=== PATIENT | female | born 1955 | race Caucasian/White ===

== ENCOUNTER → 2024-05-02 06:22 | Day surgery (SDC) | payer OTHER, SELFPAY | LOC: GI 06:22 | PROVIDERS: ATTENDING PHYSICIAN Surgery | DX: C20 Malignant neoplasm of rectum (principal); K62.5 Hemorrhage of anus and rectum; K64.9 Unspecified hemorrhoids; K56.690 Other partial intestinal obstruction; D49.0 Neoplasm of unspecified behavior of digestive system; Z53.8 Procedure and treatment not carried out for other reasons | CPT/HCPCS: 45380; 88305; 88342 ==

== ENCOUNTER → 2024-05-05 15:04 | Outpatient (REF) | payer OTHER, SELFPAY | LOC: RAD 15:04 | PROVIDERS: ATTENDING PHYSICIAN Surgery; FAMILY PHYSICIAN Nurse Practitioner | DX: K62.89 Other specified diseases of anus and rectum (principal) | CPT/HCPCS: 71260; 74177; Q9967 ==

== ENCOUNTER → 2024-05-18 11:45 | Outpatient (REF) | payer OTHER, SELFPAY | LOC: MRI 3T 11:45 | PROVIDERS: ATTENDING PHYSICIAN Surgery; FAMILY PHYSICIAN Nurse Practitioner | DX: K62.89 Other specified diseases of anus and rectum (principal) | CPT/HCPCS: 72197; A9575 ==

== ENCOUNTER 2024-06-01 06:25 | Day surgery (SDC) | payer OTHER, SELFPAY ==
[2024-06-01] VITALS (9 sets, daily range): BP systolic 97–130; BP diastolic 65–82; BMI 17.6
[2024-06-01] MEDS: TYLENOL 1000 MG PO (09:52)
[2024-06-01] MEDS: CELEBREX 200 MG PO (09:52)
[2024-06-01] MEDS: NORMOSOL-R 1000 IV (09:54)
--- NOTE | 2024-06-01 13:15 | W.IMMPOSTOP ---
Surgical Immed Post Op Note
-
Primary Surgeon: Gregory Spivey MD
Assisting Surgeon: None
Pre-op Diagnosis: Rectal cancer
Post-op Diagnosis: Rectal cancer
Procedure Performed: Mediport insertion
Anesthesia Type: Sedation with local
Specimen / Cultures: None
Estimated Blood Loss: 10 mL
Complications: None
Operative Findings: Per op note
--- NOTE | 2024-06-01 13:17 | OR.RPT ---
Operative Report
Operative Report
DATE OF OPERATION: 06/01/2024
SURGEON: Gregory Spivey MD
PREOPERATIVE DIAGNOSIS: Rectal cancer
POSTOPERATIVE DIAGNOSIS: Rectal cancer
OPERATION: Left subclavian Mediport insertion
ASSISTANTS:
1. None
ANESTHESIA: MAC w/ local
ESTIMATED BLOOD LOSS: 10 mL
FINDINGS:
1. After placement, the tip of port catheter visualized at level of the cavoatrial junction on fluoroscopy
2. Once sutured in position, port tested with Sawant needle and there was good withdrawal of blood and instillation of heparinized saline without resistance
SPECIMENS: None
DRAINS: None
COMPLICATIONS: No immediate complications.
INDICATIONS: The patient is a 69-year-old female with mid rectal cancer. After staging and tumor board discussion, infusional chemotherapy was recommended. Therefore, I recommended port placement. The operation was discussed with the patient in
detail including risks and benefits. Risks discussed included, but are not limited to, bleeding, infection, pneumothorax, post-operative malposition or movement of catheter, DVT/PE, and anesthetic risks. The patient understood and agreed to proceed.
The consent was signed and placed in the chart.
PROCEDURE: Patient was taken to the operating room and placed on the operating table in supine position. Sequential compression devices were placed bilaterally. Sedation was commenced without complication. Bilateral arms were tucked and the head
tilted toward the right. The left neck and chest wall area were prepped and draped in a sterile fashion. A time-out was then performed verifying the correct patient, procedure, operative site, positioning, and special equipment.
The patient was then placed in Trendelenburg position. Local anesthetic consisting of lidocaine 1% with epinephrine was used to numb the skin and soft tissue near the angle of the left clavicle and the planned subcutaneous port pocket. Then using
bony landmarks as a guide, I passed the needle with 10mL syringe under the left collar bone in the direction of the sternal notch while simultaneously aspirating. On the second pass, good venous return was noted indicating that I had accessed the
left subclavian vein. Under fluoroscopic guidance a guidewire was passed through the needle into the patient down to the superior vena cava. This went smoothly.
The needle was removed over the guidewire and a skin opening was enlarged with an 11 blade scalpel. Next, I advanced the dilator and peel-away sheath together over the guidewire into the patient. This went smoothly as well. Next, the guidewire and
inner dilator were removed leaving the outer sheath in place. I advanced the white tubing through the outer sheath into the patient under fluoroscopic guidance to the superior vena cava near the right atrium. Next, the outer sheath was peeled away
while maintaining the white tubing in place.
Using a 15 blade scalpel, I made a 4cm incision over the chest wall near the white tubing exit site. A subcutaneous pocket was created inferiorly to the incision with a combination of Bovie electrocautery and blunt dissection. There was good
hemostasis. The white tubing was connected to the tunneling device and brought through a newly created tunnel to the pocket area, taking care to avoid kinking of the tube. The white tubing was trimmed, connected to the the port reservoir and secured
with the locking mechanism. The port reservoir was accessed with good venous return and flushed with heparinized saline. One last round of fluoroscopy was performed. The tip of the white tubing was at the level of the superior vena cava and there
was no kink in the tubing.
The reservoir was then secured to the chest wall within the pocket with two 3-0 Prolene stitches. The subcutaneous layer was closed with deep dermal interrupted 3-0 Vicryl and the skin was closed with a running subcuticular 4-0 Vicryl. The remaining
local was injected around the subcutaneous pocket, port incision and stab incision. Dermabond was used to dress the port incision and stab incision.
At this point, the procedure was complete. All sponge, needle and instrument counts were correct. The patient tolerated the procedure well and was transferred to the recovery room in stable condition. A portable chest x-ray was ordered in recovery
to confirm port position and rule-out pneumothorax.
DICTATED BY: Gregory Spivey MD
== END 2024-06-01 15:39 | disposition home or self-care (01) ==
LOC: SDS 06:25
PROVIDERS: ATTENDING PHYSICIAN Surgery
DX: C20 Malignant neoplasm of rectum (principal)
CPT/HCPCS: 36561; 71045; C1788

== ENCOUNTER → 2024-09-28 09:24 | Outpatient (REF) | payer MEDICARE, OTHER, SELFPAY | LOC: MRI 3T 09:24 | PROVIDERS: ATTENDING PHYSICIAN Internal Medicine Hematology & Oncology; FAMILY PHYSICIAN Nurse Practitioner | DX: C20 Malignant neoplasm of rectum (principal) | CPT/HCPCS: 72197; A9575 ==

== ENCOUNTER 2024-10-28 09:48 | Inpatient (IN) | payer MEDICARE, OTHER, SELFPAY ==
[2024-10-20 10:20] LABS: Hematocrit 39.7 % (37.0-47.0); Mean Corp Hgb Conc. 32.7 g/dL (33.0-37.0); Mean Corpuscular Hgb 32.1 pg (27.0-31.0); Mean Platelet Volume 9.1 fL (7.4-10.4); Platelet Count 265 10^3/uL (130-400); Red Blood Cell Count 4.05 10^6/uL (4.20-5.40); Red Cell Dist. Width 12.8 % (11.5-14.5); White Blood Cell Count 4.8 10^3/uL (4.8-10.8)
[2024-10-20 10:36] LABS: INR 0.87; PT 12.4 Sec (11.4-14.6)
[2024-10-20 10:37] LABS: APTT 28.9 Sec (23.4-35.0)
[2024-10-20 11:58] LABS: ALT (SGPT) 19 U/L (0-35); AST (SGOT) 31 U/L (14-36); Albumin 4.8 g/dl (3.5-5.0); Alkaline Phosphatase 114 U/L (38-126); Blood Urea Nitrogen 12 mg/dl (7-17); Calcium 9.4 mg/dl (8.4-10.2); Carbon Dioxide 28 mmol/L (22-30); Chloride 102 mmol/L (98-107); Glucose 102 mg/dl (70-99); Potassium 4.3 mmol/L (3.5-5.1); Sodium 140 mmol/L (135-145); Total Bilirubin 0.4 mg/dl (0.2-1.3); Total Protein 7.7 g/dl (6.3-8.2); eGFR > 60.00
[2024-10-20 13:59] VITALS: BMI 20.6
[2024-10-28] VITALS (15 sets, daily range): BP systolic 101–167; BP diastolic 58–96; BMI 20.6
[2024-10-28] MEDS: CELEBREX 200 MG PO (10:52)
[2024-10-28] MEDS: ENTEREG 12 MG PO (10:52)
[2024-10-28] MEDS: TYLENOL 1000 MG PO ×2 (10:52→23:36)
[2024-10-28] MEDS: LYRICA 150 MG PO (10:53)
[2024-10-28] MEDS: NORMOSOL-R/PLASMALYTE-A 1000 IV ×2 (10:54→21:29)
[2024-10-28 12:20] LABS: CEA 6.54 ng/ml
--- NOTE | 2024-10-28 17:46 | W.IMMPOSTOP ---
Surgical Immed Post Op Note
-
Primary Surgeon: Gregory Spivey MD
Assisting Surgeon: LUCIAN Woods, Ward Nma MD
Urologist: N/A
Pre-op Diagnosis: Rectal cancer
Post-op Diagnosis: Rectal cancer
Procedure Performed: Robotic low anterior resection, mesenteric angiography with ICG, flexible sigmoidoscopy, laparoscopic TAP block
Anesthesia Type: General
Specimen / Cultures: Rectosigmoid, donuts
Estimated Blood Loss: 50 mL
Complications: None
Operative Findings: Veress needle entry; 5five 8 mm robotic ports; took down some adhesions from the sigmoid to the left pelvic brim; performed medial lateral dissection of the sigmoid up to the proximal descending colon; initial dissection was
initially superior to the presacral plane, but reentered the correct plane prior to pelvic dissection; ligated the KAT; performed rectal dissection down to about 4 to 5 cm from the anal verge; suspended uterus with 2-0 nylon; performed a flexible
sigmoidoscopy showing no rectal mass but significant stenosis of 1 to 1.5 cm, unable to traverse; stapled with a green load 60 mm robotic stapler x 2; ligated the IMV and placed anvil intracorporeally; performed EEA stapled anastomosis; negative
leak test, intact donuts x 2, anastomosis intact on flex sig; performed laparoscopic tap block with 30 mL of 0.25% Marcaine with epi mixed with 0.3 mg of dexamethasone; injected remaining 30 cc of local around the incisions and closed
Rectal Surgery Post Op Note
Immediate Post Op
Primary Surgeon: Gregory Spivey MD
Assisting Surgeon: LUCIAN Woods, Ward Nam MD
Urologist: N/A
Pre-op Diagnosis: Rectal cancer
Post-op Diagnosis: Rectal cancer
Procedure Performed: Robotic low anterior resection, mesenteric angiography with ICG, flexible sigmoidoscopy, laparoscopic TAP block
Anesthesia Type: General
Specimen / Cultures: Rectosigmoid, donuts
Estimated Blood Loss: 50 mL
Complications: None
Operative Findings: Veress needle entry; 5five 8 mm robotic ports; took down some adhesions from the sigmoid to the left pelvic brim; performed medial lateral dissection of the sigmoid up to the proximal descending colon; initial dissection was
initially superior to the presacral plane, but reentered the correct plane prior to pelvic dissection; ligated the KAT; performed rectal dissection down to about 4 to 5 cm from the anal verge; suspended uterus with 2-0 nylon; performed a flexible
sigmoidoscopy showing no rectal mass but significant stenosis of 1 to 1.5 cm, unable to traverse; stapled with a green load 60 mm robotic stapler x 2; ligated the IMV and placed anvil intracorporeally; performed EEA stapled anastomosis; negative
leak test, intact donuts x 2, anastomosis intact on flex sig; performed laparoscopic tap block with 30 mL of 0.25% Marcaine with epi mixed with 0.3 mg of dexamethasone; injected remaining 30 cc of local around the incisions and closed
Cancer Report
ASA Score: II
Case Status: Elective
Operation: Low anterior resection
Modailty: Robotic
Location of tumor within rectum: Middle
Height of lower edge of tumor from anal verge: 9cm
Mobilization of splenic flexure: No
Level of ligation of inferior mesenteric artery: Inferior mesenteric artery
Level of ligation of inferior mesenteric vein: High
Level of rectal transectiondistal to distal edge of tumor: 3 cm
Type of Reconstruction: Stapled end-end
Anastomotic testing method(s): Rectal air infusion under pelvic fluid
Creation of stoma: No
En bloc resection: No
Metastectomy: No
Completeness of tumor resection: R0
Interoperative Complications: No
Blood transfusion: No
Total Mesorectal Excision photographed: in pathology
Rectal Cancer Synoptic Report
Immediate Post Op
Primary Surgeon:
Assisting Surgeon:
Urologist:
Pre-op Diagnosis:
Post-op Diagnosis:
Procedure Performed:
Anesthesia Type:
Specimen / Cultures:
Estimated Blood Loss:
Complications:
Operative Findings:
Cancer Report
ASA Score: II
Case Status: Elective
Operation: Low anterior resection
Modailty: Robotic
Location of tumor within rectum: Middle
Height of lower edge of tumor from anal verge: 9cm
Mobilization of splenic flexure: No
Level of ligation of inferior mesenteric artery: Inferior mesenteric artery
Level of ligation of inferior mesenteric vein: High
Level of rectal transectiondistal to distal edge of tumor: 3cm
Type of Reconstruction: Stapled end-end
Anastomotic testing method(s): Rectal air infusion under pelvic fluid
Creation of stoma: No
En bloc resection: No
Metastectomy: No
Completeness of tumor resection: R0
Interoperative Complications: No
Blood transfusion: No
Total Mesorectal Excision photographed: in pathology
[2024-10-28] MEDS: ZOFRAN 4 MG IV (19:00)
[2024-10-28] MEDS: TORADOL 15 MG IV ×2 (19:07→23:36)
--- NOTE | 2024-10-28 20:55 | PTCARENOTE ---
Pt arrive to [facility] at 2015 from PACU on a bed. Pt was 5 lap sites and 1 low transverse site. Pt was an accessed Left port and a Castro draining yellow urine. Pt drowsy but easily arousable to verbal. Head to toe complete and admission questions
answered. Bed locked and in lowest position. Pt oriented to call ellison and room. Care ongoing.
[2024-10-29 03:30] VITALS: BP 114/67
[2024-10-29] MEDS: TORADOL 15 MG IV (05:26)
[2024-10-29] MEDS: TYLENOL 1000 MG PO ×4 (05:26→23:03)
[2024-10-29 06:00] VITALS: BMI 20.1
[2024-10-29 06:22] LABS: Blood Urea Nitrogen 22 mg/dl (7-17); Calcium 8.5 mg/dl (8.4-10.2); Carbon Dioxide 24 mmol/L (22-30); Chloride 102 mmol/L (98-107); Estimated Creatinine Clearance 54 ml/min; Glucose 97 mg/dl (70-99); Potassium 4.8 mmol/L (3.5-5.1); Sodium 136 mmol/L (135-145); eGFR > 60.00
[2024-10-29 06:32] LABS: % Basophils 0.1 % (0-2); % Immature Granulocytes 0.3 % (0-0.5); % Lymphocytes 13.6 % (20.5-51.1); % Monocytes 6.4 % (1.7-9.3); % Neutrophils 79.6 % (42.2-75.2); Absolute Lymphocytes 1.3 10^3/uL (1.2-3.4); Absolute Monocytes 0.6 10^3/uL (0.1-0.6); Absolute Neutrophils 7.6 10^3/uL (1.4-6.5); Hematocrit 35.5 % (37.0-47.0); Hemoglobin 11.9 g/dL (12.0-16.0); Mean Corp Hgb Conc. 33.5 g/dL (33.0-37.0); Mean Corpuscular Hgb 32.2 pg (27.0-31.0); Mean Corpuscular Volume 95.9 fL (81.0-99.0); Mean Platelet Volume 9.3 fL (7.4-10.4); Nucleated Red Blood Cells % 0 %; Platelet Count 208 10^3/uL (130-400); White Blood Cell Count 9.5 10^3/uL (4.8-10.8)
[2024-10-29 07:56] VITALS: BP 112/68
[2024-10-29] MEDS: ENTEREG 12 MG PO ×2 (07:58→19:49)
--- NOTE | 2024-10-29 11:37 | PTCARENOTE ---
Addendum entered by Laurie Dumont RN 10/29/24 11:56:
Dr Spivey to bedside. Swelling marked with skin marker. Pressure DSG applied. Ice applied to site. Pt for repeat H+H this afternoon. Care remains ongoing.
Original Note:
Pt with increased pain and swelling to low transverse incision. Area noticeably raised and firm to palpation. Change from this RNs assessment this am. Nola De Santiago [employer] notified. Care remains ongoing.
[2024-10-29 11:40] VITALS: BP 116/69
[2024-10-29] MEDS: TORADOL IV ×2 (11:49→11:56)
--- NOTE | 2024-10-29 13:12 | W.PN.CRS1 ---
Addendum entered and electronically signed by Gregory Spivey MD 10/29/24 23:57:
I saw and examined the patient the morning of 10/29/24.
The B[employer]'s note was reviewed and I agree with the note.
Nurse reported a swelling at the Pfannenstiel incision around noon. I came and evaluated. There appeared to be a hematoma, likely subfascial, around the Pfannenstiel incision. I marked this with a marking pen and placed a pressure dressing.
Repeat CBC was stable at 11.4. I reevaluated the incision at about 4 PM and it was stable in size. Will continue to hold Toradol and Lovenox for today.
Original Note:
Today's Communication / Plan
-
Full liquids
OOB/Ambulate
Assessment/Plan
-
69 yo female with a h/o rectal ca who is POD #1 Robotic low anterior resection, mesenteric angiography with ICG, flexible sigmoidoscopy, laparoscopic TAP block
AFVSS
Labs stable with mild acute anemia present secondary to intraop losses and hemodilution. small hematoma at lower incision site
+Flatus but no BM as of yet, tolerating CLD
--Advance to FLD
--Analgesics/Antiemetics
--Stop IVF
--Voiding trial in AM
--Labs in AM
--SCDs and Lovenox for VTE ppx
Subjective Data
Procedure
10/28/24 Robotic low anterior resection, mesenteric angiography with ICG, flexible sigmoidoscopy, laparoscopic TAP block
Subjective Data
Date of Service: October 29, 2024
Patient seen and examined at bedside with Dr. Spivey. Some bulging at lower abdominal incision. Denies n/v. Passing flatus.
Objective Data
-
Vital Signs
Temp Pulse Resp BP Pulse Ox
98.0 F 84 18 116/69 91
10/29/24 11:40 10/29/24 11:40 10/29/24 11:40 10/29/24 11:40 10/29/24 11:40
Intake & Output
10/28/24 10/29/24 10/30/24
06:59 06:59 06:59
Intake Total 200 / 200
Output Total 550 / 550
Balance -350 / -350
Intake:
IV fluids (Total) 200 / 200
Normosol 200 / 200
Output:
Urine, Castro 550 / 550
Lab Results
10/29/24 05:03
Physical Exam
-
General: No Acute Distress
Abdomen: Soft, Non Distended and Tender (minimal to incisions)
Skin: Warm and Dry
Wound: Other (edema to lower incision: likely hematoma (marked))
Incision: Clear, Dry, Intact
[2024-10-29 13:29] LABS: Hematocrit 33.6 % (37.0-47.0); Hemoglobin 11.4 g/dL (12.0-16.0)
[2024-10-29 16:17] VITALS: BP 120/72
[2024-10-29 19:15] VITALS: BP 129/82
[2024-10-29 23:00] VITALS: BP 137/82
[2024-10-30 03:00] VITALS: BP 154/94
[2024-10-30 05:11] LABS: Hematocrit 39.4 % (37.0-47.0); Hemoglobin 12.9 g/dL (12.0-16.0); Mean Corp Hgb Conc. 32.7 g/dL (33.0-37.0); Mean Corpuscular Hgb 32.3 pg (27.0-31.0); Mean Corpuscular Volume 98.7 fL (81.0-99.0); Mean Platelet Volume 8.9 fL (7.4-10.4); Platelet Count 242 10^3/uL (130-400); Red Blood Cell Count 3.99 10^6/uL (4.20-5.40); Red Cell Dist. Width 12.1 % (11.5-14.5); White Blood Cell Count 10.2 10^3/uL (4.8-10.8)
[2024-10-30 05:34] LABS: Blood Urea Nitrogen 23 mg/dl (7-17); Carbon Dioxide 27 mmol/L (22-30); Chloride 101 mmol/L (98-107); Estimated Creatinine Clearance 61 ml/min; Glucose 102 mg/dl (70-99); Potassium 4.4 mmol/L (3.5-5.1); Sodium 135 mmol/L (135-145); eGFR > 60.00
[2024-10-30] MEDS: TYLENOL 1000 MG PO ×2 (05:58→12:26)
[2024-10-30 06:00] VITALS: BMI 19.1
[2024-10-30] MEDS: ENTEREG 12 MG PO (07:53)
[2024-10-30 07:59] VITALS: BP 120/78
--- NOTE | 2024-10-30 11:04 | W.PN.CRS1 ---
Today's Communication / Plan
-
Advance diet
Dispo planning
Assessment/Plan
-
69 yo female with a h/o rectal ca who is POD #2 Robotic low anterior resection, mesenteric angiography with ICG, flexible sigmoidoscopy, laparoscopic TAP block
AFVSS
Some mild tachycardia with activity, but rates slows with rest; expected
Labs stable with mild acute anemia present secondary to intraop losses and hemodilution, stable from previous. small stable hematoma at lower incision site
Passing flatus/stools
--Advance to regular diet
--Analgesics/Antiemetics
--OOB/Ambulate
--SCDs for VTE ppx
Tentative d/c later today if tolerating diet
Subjective Data
Procedure
10/28/24 Robotic low anterior resection, mesenteric angiography with ICG, flexible sigmoidoscopy, laparoscopic TAP block
Subjective Data
Date of Service: October 30, 2024
Patient seen and examined at bedside. Pain improved from yesterday. OOB to bathroom and has passed several BM's and flatus. Some tarry color to stool but no clots/BRB. No n/v. Tolerating fulls. Voiding well.
Objective Data
-
Vital Signs
Temp Pulse Resp BP Pulse Ox
97.7 F 92 20 120/78 95
10/30/24 07:59 10/30/24 07:59 10/30/24 07:59 10/30/24 07:59 10/30/24 07:59
Intake & Output
10/29/24 10/30/24 10/31/24
06:59 06:59 06:59
Intake Total 200 / 200 1280 / 1280
Output Total 550 / 550 1350 / 1350
Balance -350 / -350 -70 / -70
Intake:
Oral fluids 880 / 880
IV fluids (Total) 200 / 200 400 / 400
Normosol 200 / 200
Output:
Urine, Castro 550 / 550 1250 / 1250
Urine, Voided 100 / 100
Lab Results
10/30/24 04:27
10/30/24 04:27
Physical Exam
-
General: No Acute Distress
Abdomen: Soft, Non Distended and Tender (minimal to incisions)
Skin: Warm and Dry
Wound: Other (edema to lower incision: likely hematoma (decreased in size from prior markings))
Incision: Clear, Dry, Intact
[2024-10-30 11:27] VITALS: BP 146/84
--- NOTE | 2024-10-30 11:58 | CM ---
CM met with pt bedside
Pt resides with her spouse in a 3SH, 4STE
Full flight to 2nd floor bed/bath
Pt is independent with her ADLs- denies use of DMEs
Denies financial insecurities
Rx coverage through [employer]
PCP- Nicolette Sharp
Rx- Juan
Anticipate dc today pending toleration of diet
No dc needs noted
IMM verbally reviewed- copy provided
Discharge Disposition - home, no needs- spouse transport
[2024-10-30 15:30] VITALS: BP 134/90
--- NOTE | 2024-10-30 17:05 | W.DCSUMMARY ---
Discharge Summary
Discharge Data
Date of Admission: 10/28/24
Date of Discharge: 10/30/24
-
Pending Results: No
Hospital Course
Ms Petit is a 69 yo female with a h/o rectal ca who presented for operative management with robotic low anterior resection, mesenteric angiography with ICG, flexible sigmoidoscopy, laparoscopic TAP block preformed. She tolerated the procedure
well. She developed a small hematoma to the lower abdominal incision which was decreased in size prior to discharge. Hemoglobin was stable prior to discharge as well. Diet was able to be advanced and well tolerated with passage of flatus and stools.
She worked with physical therapy and was cleared to return to home. She was discharged to home with outpatient follow up planned once pain was controlled and she was tolerating a regular diet.
Discharge Plan
-
Patient Disposition: Home (Routine Discharge)
Discharge Diagnosis/Procedures: Robotic low anterior resection
Condition: Good
Diet: As tolerated and Regular
Additional Diets: Eat small meals as tolerated
Activity: No strenuous activity
Additional Activity: Do not lift over 10lbs (gallon of milk)
Driving Restrictions: Wait until off narcotics/comfortable twisting
Bathing Restrictions: OK to Shower
Wound Care: Allow the glue to fall off your incisions over the next 2-3 weeks. Avoid scrubbing or picking off.
You will notice bruising to your lower abdominal incision, apply ice as needed for swelling or discomfort.
Activity Restrictions/Additional Instructions:
Call your surgeon if you have nausea with vomiting, worsening pain or a fever >100.5
Referrals:
Nicolette Sharp CRNP [Family Provider] -
Gregory Spivey MD [Active] - in two to three weeks
Prescriptions:
New
acetaminophen [acetaminophen] 325 mg tablet
650 mg PO Q4HPRN PRN (Reason: mild pain) Qty: 1 0RF
ibuprofen 200 mg tablet
400 - 600 mg PO Q6HPRN PRN (Reason: moderate pain) Qty: 1 0RF
oxycodone 5 mg tablet
5 mg PO Q4HPRN PRN (Reason: breakthrough/severe pain) Qty: 10 0RF
Continued
cholecalciferol (vitamin D3) [Vitamin D3] 25 mcg (1,000 unit) Tablet,Chewable
25 mcg PO DAILY
Discontinued
metronidazole [Flagyl] 500 mg Tablet
500 mg PO PRE OP
Patient Comments:
Patient took at 14:00. 15:00 and 22:00.
neomycin 500 mg Tablet
500 mg PO PRE OP
Patient Comments:
Patient took at 14:00, 15:00 and 22:00.
Sutab 1.479-0.188- 0.225 gram Tablet
0 tab PO PRE OP
Discharge Orders:
Discharge Patient (As Directed); Ordered 10/30/24
Ordered By: Carmelita De Santiago
Discharge Date and Time
Discharge Date/Time: 10/30/24 17:25
Print Language: VINCENTIAN
== END 2024-10-30 17:25 | disposition home or self-care (01) | DRG 331 ==
LOC: 2 SOUTH 09:48
PROVIDERS: Registered Nurse; ADMITTING PHYSICIAN Surgery; FAMILY PHYSICIAN Nurse Practitioner
PROC: 0DJD8ZZ Inspection of Lower Intestinal Tract, Via Natural or Artificial Opening Endoscopic (ICD-10-PCS; 2024-10-28)
PROC: 0DBV0ZZ Excision of Mesentery, Open Approach (ICD-10-PCS; 2024-10-28)
PROC: 0DBN0ZZ Excision of Sigmoid Colon, Open Approach (ICD-10-PCS; 2024-10-28)
DX: C20 Malignant neoplasm of rectum (principal)
CPT/HCPCS: 88304; 88309; 36415; 71046; 80048; 80053; 82378; 83735; 85014; 85018; 85025; 85027; 85610; 85730; 86850; 86900; 86901; 88342; 93005; 97161

== ENCOUNTER 2024-11-04 17:01 | Inpatient (IN) | payer MEDICARE, OTHER, SELFPAY ==
[2024-11-04] VITALS (40 sets, daily range): BP systolic 85–130; BP diastolic 52–87; BMI 18.5
--- NOTE | 2024-11-04 13:09 | EDRN ---
EMS IV fluids restarted at this time. IV VAT RN paged to access L ACW port at this.
[2024-11-04] MEDS: NSS 500 IV (13:10)
--- NOTE | 2024-11-04 13:28 | EDRN ---
BP up to 109 systollically w/ IVF infusing at this time.
[2024-11-04 13:41] LABS: ALT (SGPT) 16 U/L (0-35); AST (SGOT) 23 U/L (14-36); Albumin 3.1 g/dl (3.5-5.0); Alkaline Phosphatase 58 U/L (38-126); Blood Urea Nitrogen 43 mg/dl (7-17); Calcium 8.2 mg/dl (8.4-10.2); Carbon Dioxide 22 mmol/L (22-30); Chloride 102 mmol/L (98-107); Estimated Creatinine Clearance 55 ml/min; Glucose 156 mg/dl (70-99); Sodium 134 mmol/L (135-145); Total Bilirubin < 0.1 mg/dl (0.2-1.3); Total Protein 5.2 g/dl (6.3-8.2); eGFR > 60.00
--- NOTE | 2024-11-04 13:45 | EDRN ---
POX was 85% w/ good pleth at this time so pt was placed on oxygen via NC at 2lpm.
[2024-11-04 13:48] LABS: Troponin I < 0.012 ng/ml
[2024-11-04 13:55] LABS: % Basophils 0.1 % (0-2); % Eosinophils 0.3 % (0-6); % Immature Granulocytes 1.5 % (0-0.5); % Lymphocytes 19.4 % (20.5-51.1); % Monocytes 6.7 % (1.7-9.3); % Neutrophils 72.1 % (42.2-75.2); Absolute Eosinophils 0.1 10^3/uL (0-0.7); Absolute Immature Granulocytes 0.2 10^3/uL (0-0.05); Absolute Lymphocytes 2.9 10^3/uL (1.2-3.4); Absolute Neutrophils 10.9 10^3/uL (1.4-6.5); Hematocrit 12.3 % (37.0-47.0); Hemoglobin 4.1 g/dL (12.0-16.0); Mean Corp Hgb Conc. 34.1 g/dL (33.0-37.0); Mean Corpuscular Hgb 34.1 pg (27.0-31.0); Mean Platelet Volume 9.1 fL (7.4-10.4); Nucleated Red Blood Cells % 0 %; Platelet Count 321 10^3/uL (130-400); Red Blood Cell Count 1.23 10^6/uL (4.20-5.40); Red Cell Dist. Width 13.5 % (11.5-14.5); White Blood Cell Count 15.2 10^3/uL (4.8-10.8)
[2024-11-04] MEDS: NSS 1000 IV (13:58)
[2024-11-04 14:25] LABS: COVID-19 Antigen Negative (Negative)
--- NOTE | 2024-11-04 15:00 | CON.CRS ---
Consultation
-
Date/Time Consultation Requested: 11/04/2024, 15:00
Date/Time Consultation Performed: 11/04/2024, 15:30
Requesting Provider: Cassie Anne DO
Performing Provider: Homar Angel MD
Reason for Consultation: dizziness
Medical History
-
Chief Complaint: dizziness
History of Present Illness:
69-year-old female, status post 1 week from a robotic low anterior resection due to rectal cancer by Dr. Gregory Spivey, presents to the ER due to dizziness. She had called our service last night complaining of dizziness every time she would walk to
her bathroom. She spoke to Dr. Nam who advised her to go to the ER. Dr. Nam called her this morning after realizing she was not in the ER and the patient stated she was feeling a bit better today. She was then called again today by me around
11 AM and the patient stated she had 3 dizzy episodes and had fallen each time. She is now unable to get out of the bed. I advised her to go to the ER and then she agreed. Her main complaint is dizziness every time she moves. She denies
abdominal pain or bleeding. She did admit to a black stool that was yesterday afternoon but has not had a bowel movement since. She denies nausea or vomiting. She did not take her temperature at home but did admit to chills whenever she would get
out of bed. In the ER her hemoglobin is 4.1. Her white count is 15.2. She was hypotensive 80s over 60s but now is 100s over 70s. Her heart rate has ranged from 90-107. She has just undergone a CT of the head, abdomen, and pelvis. Results are
still pending but it appears that there is a hematoma in the anterior pelvic wall superficial to the rectus abdominis muscle measuring 6.8 cm. As I am examining her in the room, the patient had a bowel movement. She states she was nauseous prior to
the BM but not since having one. In her underwear is a large clotty bloody dark stool.
Past Medical History
Past Medical History: Cancer (Rectal) and Other (Hyperlipidemia, osteoarthritis, history of tobacco use, vitamin D deficiency)
Past Surgical History: Other (Status post low anterior resection by Dr. Gregory Spivey on 10/28/2024)
Social History
Tobacco: Smoker
Family History
Family History: Reviewed & Not Pertinent
Allergies / Home Medications
Allergy/AdvReac Type Severity Reaction Status Date / Time
No Known Allergies Allergy Verified 11/04/24 12:48
�Medication �Instructions �Recorded �Confirmed �Type
cholecalciferol (vitamin D3) 25 25 mcg PO DAILY 05/31/24 11/04/24 History
mcg (1,000 unit) chewable tablet
(Vitamin D3)
acetaminophen 325 mg tablet 650 mg (2 x 325 mg) PO Q4HPRN PRN 10/30/24 11/04/24 Rx
mild pain #1 tab
oxycodone 5 mg tablet 5 mg PO Q4HPRN PRN 10/30/24 11/04/24 Rx
breakthrough/severe pain #10 tabs
Review of Systems
-
History Source: Patient
All other systems: Negative unless noted
Constitutional: Chills and Other (Dizziness)
Abdomen/GI: Black Stools
A 10 point review of systems was completed, and was negative except as per HPI.
Physical Exam
Vital Signs
Temp 97.4 F 11/04/24 12:49
Pulse 93 11/04/24 14:00
Resp Rate 19 11/04/24 14:00
Blood pressure 109/72 11/04/24 14:00
SaO2 100 11/04/24 14:00
11/03/24 11/04/24 11/05/24
06:59 06:59 06:59
Actual Weight 57.9 kg
Body Mass Index (BMI) 20.0
Lab Results / Allergies
11/04/24 13:04
11/04/24 13:04
WBC 15.2 10^3/uL (4.8-10.8) H 11/04/24 13:04
Hgb 4.1 g/dL (12.0-16.0) L* D 11/04/24 13:04
Hct 12.3 % (37.0-47.0) L* 11/04/24 13:04
Plt Count 321 10^3/uL (130-400) D 11/04/24 13:04
Abs Immat Gran (auto) 0.2 10^3/uL (0-0.05) H 11/04/24 13:04
Neutrophils % 72.1 % (42.2-75.2) 11/04/24 13:04
Allergy/AdvReac Type Severity Reaction Status Date / Time
No Known Allergies Allergy Verified 11/04/24 12:48
Physical Exam
General: Well Developed, Well Nourished and No Apparent Distress
GI: Soft, Non Tender, Non Distended and Other (Crepitus noted on exam (mild), lower pfannestial incision with hematoma noted underneath, some mild bruising, no obvious signs of infection)
Skin: Warm and Dry
Neuro: AO x 3
Psych: Calm
Data Reviewed
-
CT Scan: Image Personally Visualized and interpreted, Discussed with Physician and Discussed with Patient
Labs: Labs Reviewed by me, Discussed with Physician and Discussed with Patient
Old Records: Reviewed
Assessment / Plan
-
Assessment: 69-year-old female status post 1 week from a low anterior resection due to rectal cancer, presents from home due to dizziness found to have a hemoglobin of 4.1 and superficial hematoma on CT measuring 6.8 cm
Plan:
-Stat transfusion, frequent H&H's
-Remain NPO
-Await CT reads (prelim shows hematoma under incision)
-Further plans to follow, will discuss with Dr. Nam/Dr. Angel
--- NOTE | 2024-11-04 15:07 | EDRN ---
Sent slip for unit #1 of ready pRBCs at this time.
--- NOTE | 2024-11-04 15:23 | ED.GENMED ---
History of Present Illness
General
Chief Complaint: Weakness
Time Seen by Provider: 11/04/24 13:24
History of Present Illness
History of Present Illness:
69-year-old female with history of rectal CA status post robotic low anterior resection with recent admission from 10/28 to 10/30 presenting to the emergency department for generalized weakness. Patient denies any issues with the surgery, however
in the past few days has become increasingly weak and per pale. Patient denies any history of anemia or any history of transfusion. After surgery, patient did develop a small hematoma which was being monitored, without concern for bleeding
at that time. Today, patient could not ambulate, was crawling down the stairs and did fall, struck her head, did consciousness. Denies blood in her stool. Denies any abdominal pain. Denies chest pain or difficulty breathing. Denies fever.
Past History
Past History
ED Past Medical History: None
Social History
Tobacco: Smoker
Employment: Employed
Phy Exam
Physical Exam
Physical Exam:
General: Pale, dry mucous membranes
HEENT: protecting airway
Head: Small abrasion to nasal bridge. No septal hematoma
Neck: appears supple
CV: Normal heart rate, regular rhythm
Resp: No accessory muscle use, no increased work of breathing, lungs clear to auscultation bilaterally
Abd: No distention, however diffuse palpation of crepitus to the abdomen. There is evidence of previous demarcated hematoma to the lower abdomen, soft on palpation. No erythema or warmth to the region.
Extremities: No deformities, no swelling, no erythema, pulses and sensation intact
Neuro: alert, no focal neurologic deficit
: deferred
Rectal: deferred
Psych: Normal affect
Skin: Intact
Course
Orders/Labs/Results
Orders:
Orders
11/04/24 12:47
Electrocardiogram (*1) Urgent
Reason for Study: Chest Pain
Cardiac Monitoring- Treatment ONCE
EKG- Treatment ONCE
11/04/24 13:04
Type And Crossmatch [Type+Screen] Urgent
Complete Blood Count/With Diff Urgent
Comprehensive Metabolic Panel Urgent
Troponin I Urgent
11/04/24 13:40
0.9% Sodium Chloride 1000 ml [Nss] 1,000 ml IV BOLUS
11/04/24 13:41
CT Head W/o Iv Contrast Urgent
Comment:
Reason For Exam: fall, contusion to forehead
11/04/24 13:53
COVID-19 Antigen Urgent
Source: Nasal Swab
Influenza A+B Rapid Molecular Urgent
ACE Source: Nasal Swab
Specimen Description:
11/04/24 13:58
0.9% Sodium Chloride 500 ml [Nss] 500 ml IV BOLUS
11/04/24 14:21
CT Abd/pelvis W Iv Cont Urgent
Comment:
Reason For Exam: anemia after surg. Rectal contrast please
11/04/24 14:39
* Blood Bank Products Urgent
Blood Bank Products: *Packed RBC Leuko(PRBC's)
Quantity: 2
Transfuse Today: Yes
Reason: Bleeding
11/04/24 15:39
Pantoprazole 80 mg/ 100 mL 8 mg/hr NOW X 1 BAG Pantoprazole 80 mg/100 ml Nss [Protonix] 80 mg in 100 ml IV NOW
Abnormal Lab Results
11/04/24
13:04
WBC 15.2 H 10^3/uL
(4.8-10.8)
RBC 1.23 L 10^6/uL
(4.20-5.40)
Hgb 4.1 L* D g/dL
(12.0-16.0)
Hct 12.3 L* %
(37.0-47.0)
MCV 100.0 H fL
(81.0-99.0)
MCH 34.1 H pg
(27.0-31.0)
Abs Immat Gran (auto) 0.2 H 10^3/uL
(0-0.05)
Absolute Neuts (auto) 10.9 H 10^3/uL
(1.4-6.5)
Absolute Monos (auto) 1.0 H 10^3/uL
(0.1-0.6)
Immature Gran % 1.5 H %
(0-0.5)
Lymphocytes % 19.4 L %
(20.5-51.1)
Sodium 134 L mmol/L
(135-145)
BUN 43 H mg/dl
(7-17)
Glucose 156 H mg/dl
(70-99)
Calcium 8.2 L mg/dl
(8.4-10.2)
Total Bilirubin < 0.1 L mg/dl
(0.2-1.3)
Total Protein 5.2 L g/dl
(6.3-8.2)
Albumin 3.1 L g/dl
(3.5-5.0)
Crossmatch IS Only See Detail
11/04/24 13:04
11/04/24 13:04
Vital Signs
Initial and Last Documented VS:
Initial Vital Signs
Temp Pulse Resp BP Pulse Ox
97.4 F 107 20 121/75 98
11/04/24 12:49 11/04/24 12:49 11/04/24 12:49 11/04/24 12:49 11/04/24 12:49
Last Documented Vital Signs
Temp Pulse Resp BP Pulse Ox
98.2 F 93 18 101/61 100
11/04/24 15:20 11/04/24 15:20 11/04/24 15:20 11/04/24 15:20 11/04/24 15:20
MDM/Problems Addressed
MDM/Problems Addressed:
69-year-old female with history of rectal cancer status post robotic low anterior resection 10/28 presenting for generalized weakness. Vital signs on arrival significant for hypotension.
On arrival, patient appears very pale and dry with dry mucous membranes. Concern for acute dehydration and possible anemia. Abdomen however is soft without tenderness. However does have a feeling of crepitus diffusely concerning for gas. Plan
for volume resuscitation with IV fluids. Plan for laboratory analysis including CBC, type and screen. Will discuss with colorectal. Patient also has a small abrasion to her nose. Will obtain CT brain, did strike her head prior to arrival. No
midline cervical neck tenderness.
14:10 -hemoglobin is 4.2, significant decrease from prior hemoglobin. Patient consented, will transfuse 2 units. In discussion with colorectal, recommending CT with IV and rectal contrast. Will obtain.
15:20 - CT shows subcutaneous hematoma in the anterior pelvic wall measuring 6.8 x 2.4 x 3.5 cm. Intact rectal anastomosis. Colorectal aware.
15:40 -in further discussion with patient, does note melena for the past few days. Colorectal reporting low utility in CT angio at this time given that she received rectal contrast. Advising transfusion and resuscitation with following of
hemoglobin, as well as GI consultation. Will start on Protonix.
*Critical Care Note
Total Time (30-74mins, 75-104mins- exclusive of procedures): 65
comment:
The high probability of a clinically significant, sudden or life threatening deterioration of the hemodynamic system(s) required my full and direct attention, intervention and personal management. The aggregate critical care time was 65 minutes.
This time is in addition to time spent performing reported procedures but includes the following:
[x] Data Review and interpretation
[x] Patient assessment and monitoring of vital signs
[x] Documentation
[x] Medication orders and management
ED Attending Note
-
Portions of this chart may have been created with voice recognition software.� Occasional wrong word or��sound alike� substitutions may have occurred due to the inherent limitations of voice recognition software.
Discharge Plan
Departure
Prescriptions:
No Action
cholecalciferol (vitamin D3) [Vitamin D3] 25 mcg (1,000 unit) Tablet,Chewable
25 mcg PO DAILY
acetaminophen [acetaminophen] 325 mg tablet
650 mg PO Q4HPRN PRN (Reason: mild pain) Qty: 1 0RF
oxycodone 5 mg tablet
5 mg PO Q4HPRN PRN (Reason: breakthrough/severe pain) Qty: 10 0RF
Referrals:
Nicolette Sharp CRNP [Family Provider] -
Interventions
Interventions:
*Risk Screen - Suicide Last Done: 11/04/24 12:49
*General Assessment Last Done: 11/04/24 12:49
*Neglect/Abuse Screening Last Done: 11/04/24 12:49
ED- Fall Risk Assessment Last Done: 11/04/24 13:02
*ED COVID-19 Vaccine History Last Done: 11/04/24 13:01
ED- Cardiac Assessment Last Done: 11/04/24 13:12
ED- Neurological Assessment Last Done: 11/04/24 13:12
ED- Pulmonary Assessment Last Done: 11/04/24 13:12
Discharge Date and Time
Print Language: AMHARIC
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
--- NOTE | 2024-11-04 16:06 | EDRN ---
Dr. Canela in room w/ pt at this time.
[2024-11-04] MEDS: PROTONIX IV 40 MG IV (16:07)
[2024-11-04] MEDS: PROTONIX 100 IV (16:08)
--- NOTE | 2024-11-04 16:34 | CON.INTV ---
Consultation
Consultation Request
Date/Time Consultation Requested: 11/04/2024
Date/Time Consultation Performed: 11/04/2024
Requesting Provider: Dr. Jorge Canela
Performing Provider: Dr. Saxena/Dr. Bocanegra
Medical History
-
Chief Complaint: dizziness
History of Present Illness:
69yo F with PMH of rectal cancer s/p resection 10/28/24 who presented to ED from home on 11/04 for dizziness. For her rectal cancer, she underwent chemotherapy from May-August, then had recent robotic low anterior resection with Dr. Spivey; she was
discharged from hospital 10/30, at which time her hgb was 12.9. Since her surgery, she reports black diarrhea. At home she initially felt well and had no difficulties ambulating. However over the past 1-2 days, she started feeling 'bad.' She reports
dizziness, fatigue, nausea, vomiting, difficulty ambulating, and multiple falls that included injury to bridge of nose. In the ED, she was tachycardic to 107 with BPs 80s-120s/60s-70s, RR 20, SpO2 90% on room air, T 97.4. Her hgb was 4.1 and
transfusion was started. Abdomen/pelvic CT showed subcutaneous hematoma in anterior pelvic wall 6.8x2.4x3.5cm. Head CT was negative for acute ICH.
Patient seen and examined in ED. HR 87, BP 116/70, RR 17, SpO2 100% on room air. Blood transfusion and protonix gtt running. Continues to have nausea and dizziness, though slightly improved. Last tolerated regular diet yesterday; today had fluids
and cream of wheat but vomited multiple times since. She denies abdominal pain, but reports burning sensation on RLQ. She denies chest pain/pressure, shortness of breath.
Past Medical History
Past Medical History: Cancer (rectal cancer) and Other (OA, hyperlipidemia)
Past Surgical History: Bowel Resection (robotic low anterior resection 10/28/24)
Social History
Tobacco: Former Smoker (quit May 2024; smoked ~8 cig/day prior to quitting)
Alcohol: Occasional (rare, none in past year)
Drug: None
Personal:
Living: With Family
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
Allergies / Home Medications
Allergies
Allergy/AdvReac Type Severity Reaction Status Date / Time
No Known Allergies Allergy Verified 11/04/24 12:48
Home Medications
�Medication �Instructions �Recorded �Confirmed �Last Taken �Type
cholecalciferol (vitamin D3) 25 25 mcg PO DAILY 05/31/24 11/04/24 10/26/24 History
mcg (1,000 unit) chewable tablet
(Vitamin D3)
acetaminophen 325 mg tablet 650 mg (2 x 325 mg) PO Q4HPRN PRN 10/30/24 11/04/24 11/04/24 Rx
mild pain #1 tab
oxycodone 5 mg tablet 5 mg PO Q4HPRN PRN 10/30/24 11/04/24 10/30/24 Rx
breakthrough/severe pain #10 tabs
Review of Systems
-
History Source: Patient
Constitutional: Fever (negative), Fatigue and Chills (negative)
EENT: Other (injury to bridge of nose from recent fall)
Respiratory: Cough (negative), Hemoptysis (negative) and Trouble Breathing (negative)
Cardiac: Chest Pain (negative) and Palpitations (negative)
Abdomen/GI: Abdominal Pain (negative), Nausea, Vomiting, Diarrhea and Black Stools
: No Symptoms
Musculoskeletal: No Symptoms
Skin: No Symptoms
Neuro: Dizzy and Weakness
Endocrine: No Symptoms
Hematologic/Lymphatic: Bleeding (negative) and Bruising (negative)
Vitals / Labs / Diagnostic Testing
Vital Signs
Temp Pulse Resp BP Pulse Ox
98.7 F 88 16 115/68 100
11/04/24 15:46 11/04/24 16:00 11/04/24 16:00 11/04/24 16:00 11/04/24 16:00
Lab Data
11/04/24 13:04
Microbiology
11/04/24 13:53 Nasal Swab Influenza Types A & B (KIMANI) - Final
Negative for Influenza A & B, NAAT
Negative results must be combined with clinical observations
and patient history.
Nucleic Acid Amplification test (NAAT)performed on the
[employer] platform.
Diagnostic Testing:
Physical Exam
-
HEENT: Normocephalic and Other (trauma to nasal bridge)
Cardiovascular: S1/S2, Regular Rhythm, Murmur (negative), Peripheral Edema (negative) and Calf Tenderness (negative)
Respiratory: Clear (bilaterally), Wheeze (negative), Rales (negative), Rhonchi (negative), Non-Labored Respirations and Other (room air)
GI: Soft, Non Distended, Flat, Non Tender, Normal Bowel Sounds (active bowel sounds), Other (crepitus to light palpation) and Other (robotic incisions clean, dry, intact with no drainage or erythema)
Neurology: Awake, Alert, Oriented and AO x 3
Skin: Warm, Dry and Other (pale)
General: Comfortable and Pain (negative)
Assessment
-
69yo F with PMH of rectal cancer s/p resection 10/28/24 who presented to ED from home on 11/04 for dizziness. For her rectal cancer, she underwent chemotherapy from May-August, then had recent robotic low anterior resection with Dr. Spivey on
10/28; she was discharged from hospital 10/30, at which time her hgb was 12.9. Since her surgery, she reports black diarrhea. At home she initially felt well and had no difficulties ambulating. However over the past 1-2 days, she started feeling
'bad.' She reports dizziness, fatigue, nausea, vomiting, difficulty ambulating, and multiple falls that included injury to bridge of nose. In the ED, she was tachycardic to 107 with BPs 80s-120s/60s-70s, RR 20, SpO2 90% on room air, T 97.4. Her hgb
was 4.1 and transfusion was started. Abdomen/pelvic CT showed subcutaneous hematoma in anterior pelvic wall 6.8x2.4x3.5cm. Head CT was negative for acute ICH.
#Symptomatic anemia (hgb 4.1 on admission)- likely secondary to acute blood loss
#Suspected upper GI bleed
#Rectal cancer s/p robotic resection 10/28, s/p chemotherapy
#Ambulatory dysfunction, multiple falls- likely secondary to acute anemia
#Leukocytosis
#Hyponatremia mild
#Hypoalbuminemia
Plan:
- Currently receiving 1st unit pRBC. Follow with additional pRBC transfusion.
- Recheck cbc 1 hour after 2nd unit pRBC transfusion finishes.
- Monitor H/H q6h, or more often if actively bleeding
- Continue protonix gtt
- Maintain NPO, continue IVF
- 2 large bore IVs
- GI consulted, pending recommendations
- Hold blood thinners
- Hold antihypertensives
- Trend CBC daily
- Repeat BMP daily
- Supplement electrolytes prn
- PT/OT
- VTE ppx: SCDs
- Hold pharmacologic vte ppx given concern for ongoing bleeding
- Full code
- If medical decision maker is needed, it would be her Pb
Data:
CT head 11/04/24:
No acute intracranial abnormality.
CT abd/pelvis 11/04/24:
1. Subcutaneous hematoma in the anterior pelvic wall measuring 6.8 x 2.4 x 3.5 cm.
2. Postoperative changes in keeping with the recent low anterior resection including subcutaneous emphysema extending along the anterior abdominal and pelvic wall. Intact rectal anastomosis without evidence for extravasation of instilled rectal
contrast
[2024-11-04] MEDS: TRANEXAMIC ACID 100 IV (16:46)
--- NOTE | 2024-11-04 16:48 | CON.GI ---
Addendum entered and electronically signed by Oleg Thompson MD 11/04/24 18:28:
I saw and evaluated the patient. I reviewed the resident�s note and agree with findings and plan as documented in the resident�s note.
69yo female presents with weakness and Hgb 4.1. She was recently dx'd with rectal cancer in April treated with neoadjuvant chemo then went to OR for LAR 10/28. Hgb at d/c was 12.9 on 10/30. She had been passing black stools since surgery 2-3 times
daily. After returning home she began feeling extreme fatigue. Denies n/v, abd pain. Had syncopal episode and presents to ER. CT shows subcutaneous hematoma in anterior pelvic wall 6.8 x 2.4 x 3.5cm and post op changes of LAR, no leak of rectal
contrast. BUN 43. She denies NSAIDS. RN reports BM after CT rectal contrast was dark bloody.
REC:
NPO
Transfuse Hgb
Monitor stool output and can decide if EGD warranted to r/o UGIB.
There is a hematoma on CT, but does not sound big enough to cause 8g drop Hgb and it would not cause bloody stools
WiIll follow along with Colorectal
Protonix gtt for now
Original Note:
Consultation
-
Date/Time Consultation Requested: 11/04/2024 16:15
Date/Time Consultation Performed: 11/04/2024 16: 45
Requesting Provider: Jorge Canela MD
Performing Provider: Oleg Thompson MD
Reason for Consultation: Anemia, GI bleed
Medical History
Chief Complaint / HPI
Chief Complaint: Weakness
History of Present Illness:
69-year-old female with PMH of COPD, hyperlipidemia, rectal cancer s/p robotic low anterior resection with flexible sigmoidoscopy and laparoscopic TAP block performed on 10/30/2024 Dr. Patric Jenkins who presented to ED on 11/04 with weakness,
dizziness and history of falling multiple times after discharge. She reports another fall today, hitting her head with loss of consciousness. Patient reported that her picked her up but did drop her because he is also sick. Patient spoke
with Dr. Nam who told patient to come into the ED for evaluation. Patient stated that she has been having this feeling for the past 1 week after her procedure lightheadedness and inability to ambulate. She also reports dark tarry stools since
the procedure with inability to get out of bed or get up from sitting in the toilet.
While in the ED, patient's BP was low 89/64, hemoglobin was 4.1 , Platelets 321, albumin 3.1, BUN 43 creatinine 0.9, with WBC count of 15.2.CT abdomen pelvis with IV contrast reported subcutaneous hematoma in the anterior pelvic wall and intact
rectal anastomosis without any evidence of extravasation of rectal contrast.Head CT done in the ED was negative for any intracranial abnormalities. Patient is fully oriented, and reports feeling better since admission. Physical examination was
remarkable for hematoma around surgical site but no erythema or discharge. She is responding to IV fluid (s/p 2 L NSS and 2 units PRBC), with BP 130/78. She is currently on 2 L O2 NC saturating at 100%.
Past Medical History
Past Medical History: Cancer (Rectal), COPD, Hypercholesterolemia and Other (Osteoarthritis)
Past Surgical History: Bowel Resection (Rectal cancer resection 10/28/2024)
Social History
Tobacco: Smoker
Alcohol: Occasional
Drug: None
Allergies / Home Medications
Allergy/AdvReac Type Severity Reaction Status Date / Time
No Known Allergies Allergy Verified 11/04/24 12:48
�Medication �Instructions �Recorded
cholecalciferol (vitamin D3) 25 25 mcg PO DAILY 05/31/24
mcg (1,000 unit) chewable tablet
(Vitamin D3)
acetaminophen 325 mg tablet 650 mg (2 x 325 mg) PO Q4HPRN PRN 10/30/24
mild pain #1 tab
oxycodone 5 mg tablet 5 mg PO Q4HPRN PRN 10/30/24
breakthrough/severe pain #10 tabs
Review of Systems
-
All other systems: A 12 pt ROS was Negative except as stated above in HPI
Constitutional: Denies Fever
EENT: Reports No Symptoms
Respiratory: Reports No Symptoms
Cardiac: Denies Chest Pain or Palpitations
Abdomen/GI: Reports Nausea, Vomiting, Black Stools and Other (Mild bilateral lower quadrant pressure vs pain); Denies Abdominal Pain, Diarrhea or Constipated
: Reports No Symptoms
Musculoskeletal: Denies Joint Pain, Joint Swelling or Edema
Skin: Denies Rash
Neurological: Denies Dizzy or Weakness
Endocrine: Reports No Symptoms
Hematologic/Lymphatic: Reports No Symptoms
Vital Signs
Temp Pulse Resp BP Pulse Ox
98.5 F 82 16 105/70 100
11/04/24 16:40 11/04/24 16:40 11/04/24 16:40 11/04/24 16:40 11/04/24 16:40
Physical Exam
Exam
General: No Apparent Distress and Comfortable
HEENT: Negative Thrush
Respiratory: Clear and Non Labored Respirations; Negative Wheezes or Rales
Cardiac: S1/S2 and Regular Rhythm
GI: Soft, Non Tender, Non Distended and Other (Decreased bowel sounds, mild bilateral lower quadrant jing pressure from recent surgery)
Genito-urinary: No Costovertebral Tender
Musculoskeletal: No Clubbing, No Cyanosis and No Edema
Skin: Warm
Neuro: Awake, AO x 3 and Nonfocal/Grossly Intact
Psych: Calm
Results
WBC 15.2 10^3/uL (4.8-10.8) H 11/04/24 13:04
Hgb 4.1 g/dL (12.0-16.0) L* D 11/04/24 13:04
Hct 12.3 % (37.0-47.0) L* 11/04/24 13:04
MCV 100.0 fL (81.0-99.0) H 11/04/24 13:04
Plt Count 321 10^3/uL (130-400) D 11/04/24 13:04
Absolute Neuts (auto) 10.9 10^3/uL (1.4-6.5) H 11/04/24 13:04
Sodium 134 mmol/L (135-145) L 11/04/24 13:04
Potassium 4.0 mmol/L (3.5-5.1) 11/04/24 13:04
Chloride 102 mmol/L (98-107) 11/04/24 13:04
Carbon Dioxide 22 mmol/L (22-30) 11/04/24 13:04
BUN 43 mg/dl (7-17) H 11/04/24 13:04
Creatinine 0.9 mg/dL (0.6-1.0) 11/04/24 13:04
Calcium 8.2 mg/dl (8.4-10.2) L 11/04/24 13:04
Total Bilirubin < 0.1 mg/dl (0.2-1.3) L 11/04/24 13:04
AST 23 U/L (14-36) 11/04/24 13:04
ALT 16 U/L (0-35) 11/04/24 13:04
Alkaline Phosphatase 58 U/L (38-126) 11/04/24 13:04
Diagnostic Image Results:
CT abdomen and pelvis 11/04/2024:
1. Subcutaneous hematoma in the anterior pelvic wall measuring 6.8 x 2.4 x 3.5 cm.
2. Postoperative changes in keeping with the recent low anterior resection including subcutaneous emphysema extending along the anterior abdominal and pelvic wall. Intact rectal anastomosis without evidence for extravasation of instilled rectal
contrast.
Prior GI Procedures:
Colonoscopy 05/02/2024:
Hemorrhoids found on perianal exam.
- Likely malignant partially obstructing tumor in the
mid rectum. Biopsied. Tattooed.
Recommendation: - Discharge patient to home.
- Return to my office in 1 week.
Procedure Code(s): --- Professional ---
71565, 52, Colonoscopy, flexible; with biopsy, single
or multiple
Diagnosis Code(s): --- Professional ---
K64.9, Unspecified hemorrhoids
D49.0, Neoplasm of unspecified behavior of digestive
system
K56.690, Other partial intestinal obstruction
K62.5, Hemorrhage of anus and rectum
Assessment / Plan
-
Impression: 69-year-old female with PMH of COPD, hyperlipidemia, rectal cancer s/p robotic low anterior resection with flexible sigmoidoscopy and laparoscopic TAP block performed on 10/30/2024 Dr. Patric Jenkins who presented to ED on 11/04 with
weakness, dizziness and history of falling multiple times after discharge. Reports tarry black stool since discharge that has improved.
Assessment/plan:
#Melena with acute anemia, hypotension and dizziness
-Reports improving tarry black stools since after procedure 5 days ago, however denies NSAID use, BRBPR, no history of UGIB.
-Monitor H&H and transfuse PRBC to keep Hb >7.0.
-Follow CBC.
-Keep NPO for now.
-Monitor for bright red blood per rectum, black stools; If continues to have melena, we will do an EGD to look for source.
-Continue IV Protonix-follow resuscitation with 0.9% nss.
-Defer management of other chronic problems to primary team.
-
-
Thank you for consultation and allowing me to participate in the patient's care. Please call the donor services specialist GI physician during the after hours with any questions or concerns.
[2024-11-04] MEDS: LR 1000 IV (17:12)
--- NOTE | 2024-11-04 17:13 | EDRN ---
Attempted to administer blood using TAR but product number would not scan w/Blood Bank called and Blood bank said to use pink paper. full 2 nurse check repeated and pink sheet filled out.
--- NOTE | 2024-11-04 17:14 | EDRN ---
Attempting to call report to ICU for room 3365 at this time.
--- NOTE | 2024-11-04 17:18 | EDRN ---
Dr. Nam in to see pt at this time.
--- NOTE | 2024-11-04 17:26 | EDRN ---
Dr. Thompson in room w/ pt at this time.
--- NOTE | 2024-11-04 17:42 | EDRN ---
Second attempt to call report to ICU. Nurse in room was in room w/ critical when prior call was made.
--- NOTE | 2024-11-04 17:52 | EDRN ---
Report called to Stefania STEWARD in ICU.
--- NOTE | 2024-11-04 18:49 | PTCARENOTE ---
1730-Received pt from ED via stretcher.Pt awake and alert.Speech is appropriate.+ESPINOSA.Denies pain.SR noted.IVF and Protonix gtt infusing.#2 PRBC transfusion finished in ICU.POX 97% O2 2l NC.Lungs CTA.NPO.Denies abdominal pain.No BM.Has not
voided.Purewick set up as per pt request.5 stab wounds noted on abdomen.Slightly ecchymotic with surgical adhesive intact.Lower abdomen incision ecchymotic with hematoma noted.No drainage.Incision is intact with surgical adhesive.Right hip
ecchymosis noted.Nose bridge hematoma/laceration noted.Plan of care discussed.
--- NOTE | 2024-11-04 19:45 | PTCARENOTE ---
Received patient at 1900. Pt. currently in bed. Awake, alert, and oriented. Denies pain/discomfort. Afebrile. Heart rhythm sinus. Blood pressure normotensive. Currently on 2L nasal cannula. Lungs sound diminished. Currently NPO. IV fluids infusing.
Voiding without issue, pure wick device in place. Skin as documented. H+H drawn. Discussed plan of care. Vital signs stable at this time.
[2024-11-04 19:52] LABS: Hematocrit 18.9 % (37.0-47.0); Hemoglobin 6.5 g/dL (12.0-16.0)
[2024-11-04 19:56] LABS: APTT 24.9 Sec (23.4-35.0); INR 1.12; PT 14.7 Sec (11.4-14.6)
[2024-11-05] VITALS (21 sets, daily range): BP systolic 95–127; BP diastolic 57–78; BMI 18.8
--- NOTE | 2024-11-05 00:05 | PTCARENOTE ---
Pt. repeat hemoglobin was 6.5 (previous 4.1) after 2u PRBC. RECORDS COORDINATOR notified. 1u PRBC ordered and transfused (3 total so far). Pt. with no complaints. Vital signs stable at this time.
[2024-11-05] MEDS: PROTONIX IV (00:54)
[2024-11-05] MEDS: LR 1000 IV ×2 (00:54→09:43)
[2024-11-05 01:16] LABS: Hematocrit 21.9 % (37.0-47.0); Hemoglobin 7.6 g/dL (12.0-16.0)
[2024-11-05] MEDS: PROTONIX 100 IV ×3 (02:13→23:36)
[2024-11-05 06:07] LABS: % Basophils 0.5 % (0-2); % Eosinophils 1.1 % (0-6); % Immature Granulocytes 2.6 % (0-0.5); % Monocytes 7.5 % (1.7-9.3); % Neutrophils 64.3 % (42.2-75.2); Absolute Basophils 0.1 10^3/uL (0-0.2); Absolute Eosinophils 0.1 10^3/uL (0-0.7); Absolute Immature Granulocytes 0.3 10^3/uL (0-0.05); Absolute Lymphocytes 2.7 10^3/uL (1.2-3.4); Absolute Monocytes 0.9 10^3/uL (0.1-0.6); Absolute Neutrophils 7.3 10^3/uL (1.4-6.5); Hematocrit 21.5 % (37.0-47.0); Hemoglobin 7.7 g/dL (12.0-16.0); Mean Corp Hgb Conc. 35.8 g/dL (33.0-37.0); Mean Corpuscular Hgb 32.1 pg (27.0-31.0); Mean Corpuscular Volume 89.6 fL (81.0-99.0); Mean Platelet Volume 8.9 fL (7.4-10.4); Nucleated Red Blood Cells % 0.4 %; Platelet Count 223 10^3/uL (130-400); Red Cell Dist. Width 15.3 % (11.5-14.5); White Blood Cell Count 11.3 10^3/uL (4.8-10.8)
[2024-11-05 06:12] LABS: INR 1.05
[2024-11-05 06:15] LABS: Blood Urea Nitrogen 27 mg/dl (7-17); Carbon Dioxide 27 mmol/L (22-30); Chloride 107 mmol/L (98-107); Estimated Creatinine Clearance 78 ml/min; Glucose 100 mg/dl (70-99); Sodium 136 mmol/L (135-145); eGFR > 60.00
--- NOTE | 2024-11-05 08:17 | W.PN.UPDATE ---
Update Note
Progress Note Update
Patient feeling well overnight, no bowel movements, hemoglobin responded appropriately and is stable, hemodynamically stable. Anemia is likely multifactorial, with significant hematoma and likely some anastomotic oozing, though given initial black
stool, syncope and significant anemia we will plan EGD today to rule out upper GI source. Will continue Protonix for now.
--- NOTE | 2024-11-05 08:28 | W.PN.INTV ---
Today's Communication / Plan
Recommendations
Serial H&H and transfuse to keep Hb >7 g/dL
EGD today
Clear liquid diet and advance diet as tolerated as per GI + surgery
Pain control
Maintain MAP >65
Hold PO antihypertensives for now
Hold anticoagulants/antiplatelets for now
SCDs
If EGD does not show any concerning findings and she remains hemodynamically stable then will downgrade out of ICU to telemetry. Once downgraded then we will sign off. Please call back with any questions or concerns.
Assessment
-
69yo F with PMH of rectal cancer s/p resection 10/28/24 who presented to ED from home on 11/04 for dizziness. For her rectal cancer, she underwent chemotherapy from May-August, then had recent robotic low anterior resection with Dr. Spivey on
10/28; she was discharged from hospital 10/30, at which time her hgb was 12.9. Since her surgery, she reports black diarrhea. At home she initially felt well and had no difficulties ambulating. However over the past 1-2 days, she started feeling
'bad.' She reports dizziness, fatigue, nausea, vomiting, difficulty ambulating, and multiple falls that included injury to bridge of nose. In the ED, she was tachycardic to 107 with BPs 80s-120s/60s-70s, RR 20, SpO2 90% on room air, T 97.4. Her hgb
was 4.1 and transfusion was started. Abdomen/pelvic CT showed subcutaneous hematoma in anterior pelvic wall 6.8x2.4x3.5cm. Head CT was negative for acute ICH.
Impression:
#Acute anemia with subcutaneous hematoma seen in the anterior pelvic wall measuring 6.8 x 2.[address] A/P from 11/04/2024, likely postoperative related given recent robotic low anterior resection on 10/28/2024 but also patient reports 'black
diarrhea' which is concerning for an upper GI bleed
#Nausea/vomiting with reduced PO intake
#Black diarrhea concerning for melena/UGIB
#Lightheadedness/dizziness due to symptomatic anemia
#Rectal cancer s/p robotic assisted low anterior resection (OR date: 10/28/2024)
#Hyponatremia (mild) - resolved
#Former tobacco use disorder
#Hypoalbuminemia
Plan:
- Transfuse blood products to keep Hb >7 g/dL; keep platelets >50 K and INR<1.8
- She was transfused 3 units PRBC on 11/04/2024
- PPI gtt --> if EGD today negative then would change to 40mg IV q12hr dosing
- Colorectal surgery consulted and recommendations appreciated
- GI consulted --> awaiting EGD today, likely to be done in the ICU
- Large bore IV x2
- Hold all anticoagulants/antiplatelets for now
- Hold oral antihypertensives for now
- Maintain MAP>65
- On clear liquid diet --> ADAT as per GI and surgery
- Pain control
- Maintain euglycemia with goal BG 140-180mg/dL; continue ISS
- Replete K>4, Mg>2
- DVT ppx: SCDs for now
If EGD does not show any concerning findings and she remains hemodynamically stable then will downgrade out of ICU to telemetry. Once downgraded then we will sign off. Thank you for allowing us to be involved in the care of this patient and please
call back with any questions or concerns.
Total time spent today was 57 minutes for this encounter. Time includes reviewing laboratory test/imaging results, reviewing pertinent medical records, obtaining and reviewing medical history, performing an appropriate exam, ordering medications,
tests and procedures. Time also includes documentation of this encounter, coordinating patient care and communicating with other healthcare professionals. Total time does not include separately billed tests performed on this date of service.
Data:
CT abdomen/pelvis with IV contrast 11/04/2024:
1. Subcutaneous hematoma in the anterior pelvic wall measuring 6.8 x 2.4 x 3.5 cm.
2. Postoperative changes in keeping with the recent low anterior resection including subcutaneous emphysema extending along the anterior abdominal and pelvic wall. Intact rectal anastomosis without evidence for extravasation of instilled rectal
contrast.
CT head 11/04/24: No acute intracranial abnormality.
CXR 11/04/2024: No active cardiopulmonary disease.
Subjective Dataa
Subjective Data
Date of Service:
Date of Service: November 05, 2024
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
Subjective:
Patient seen and evaluated today at bedside. Currently on LR at 125 cc an hour. She feels better today but has some right lower quadrant abdominal tenderness which feels achy to her. She does not feel dizzy anymore or lightheaded. Current blood
pressure 110/75, heart rate 78 and saturating 96% on room air. She denies shortness of breath, DRAEK, nausea, fevers or chills. She has not had a bowel movement overnight or this morning. No vomiting episodes.
Review of Systems
General: Other (Negative unless mentioned above)
Objective Data
Data Reviewed
Vital Signs / I&O / Oxygen:
Vital Signs
Temp Pulse Resp BP Pulse Ox
98.8 F 76 17 112/65 93
11/05/24 08:00 11/05/24 07:30 11/05/24 07:30 11/05/24 07:00 11/05/24 07:30
Intake and Output
11/04/24 11/05/24 11/06/24
06:59 06:59 06:59
Intake Total 2120 / 2120 270 / 270
Output Total 1150 / 1150 200 / 200
Balance 970 / 970 70 / 70
SaO2 93
Nasal Cannula flow liters per 2
minute
Physical Exam
General: Respiratory Distress (negative), Comfortable, Pain (Right lower quadrant abdominal pain), Chills (negative) and Sweats (negative)
HEENT: Normocephalic and Anicteric
Cardiovascular: S1-S2, Rub (negative) and Peripheral Edema (negative)
Respiratory: Wheeze (negative), Crackles (negative), Rhonchi (negative), Non-Labored Respirations and Stridor (negative)
GI: Soft, Non Distended, Tender (Right lower quadrant), Normal Bowel Sounds and Other (No peritoneal signs)
Neurology: AO x 3 and Tremors (negative)
Skin: Warm, Dry, Cyanosis (negative) and Jaundice (negative)
Labs/Micro/Reports
Lab Data
11/05/24 05:47
11/05/24 05:47
Laboratory Results
11/04/24 11/05/24
19:39 05:47
PT 14.7 H 14.0
INR 1.12 1.05
APTT 24.9
Microbiology
11/04/24 13:53 Nasal Swab Influenza Types A & B (KIMANI) - Final
Negative for Influenza A & B, NAAT
Negative results must be combined with clinical observations
and patient history.
Nucleic Acid Amplification test (NAAT)performed on the
[employer] platform.
--- NOTE | 2024-11-05 10:05 | CM ---
Spoke with patient's spouse to obtain information for assessment. Patient was just recently discharged a few weeks ago and went home no needs. Patient's spouse stated that patient is normally independent with all ADLs, personal care, dressing,
bathing and ambulates without device. 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 She and her spouse drive and can get to her appointments and does do all the shopping.
She has not had VN.
He denied any DME in the home except for a cane that no one uses.
She has not been to a SNF in the past.
She goes to [facility] to get her medications.
Her PCP is Nicolette Sharp.
Patient's spouse stated that she would be agreeable to a VN after this admission and would like for . Will send referral.
Plan: Case management will continue to follow and assist with discharge planning. Home tentative VN.
--- NOTE | 2024-11-05 10:08 | W.PN.HOSP.TC ---
Today's Communication/Plan
-
PPI drip. Plan for EGD today. IVF
Assessment / Plan
Assessment / Plan
Physical exam:
General: Acutely ill
HEENT: Normocephalic, Atraumatic and Moist Mucous Membranes
Respiratory: Clear to Auscultation; Negative Wheezes, Rales or Rhonchi
Cardiac: Regular Rhythm and S1/S2
GI: Soft, Non tender and non distended. Circumscribed area of hematoma in the lower pelvic area anteriorly. Postop findings on exam from recent surgery.
Musculoskeletal: No Clubbing, No Cyanosis and No Edema
Neuro: Awake, Alert and Oriented
Psych: Calm
A/P:
Hypovolemic shock:
IV fluid
Blood transfusions
Pressors if needed
IV PPI drip
Status post tranexamic acid
Monitor hemoglobin closely
Seen CT scan of the head and no acute intracranial
Seen CT scan of the abdomen pelvis and was able to visualize hematoma anteriorly in the pelvic wall and postop changes.
Colorectal surgery consulted
GI consult appreciated--> plan for EGD today
Semiconductor Engineer consult-discussed with client specialist today
Concerns for acute GI bleed:
Keep n.p.o. and diet per GI
IV Protonix drip
Maintain IV access
IV fluid
Monitor hemoglobin closely
Avoid NSAIDs and anticoagulant
GI consult-plan for EGD today
Leukocytosis:
Reactive versus infectious
Monitor trend
Hyponatremia:
Mild
Monitor trend
DVT prophylaxis:
SCDs
CODE STATUS:
Full code
Total time spent on today's encounter was 52 minutes which included time spent in counseling the patient/family regarding diagnosis and treatment plan as listed above, goals of care, and symptom management. Case was discussed with nursing staff,
specialists, and care coordinators/case management. All labs and imaging personally reviewed by me. Remainder the time spent in detailed review of previous records, lab data, imaging, and other medical provider documentation.
Anticipated Discharge: > 48 hours
Subjective/Interval History
-
Date of Service: November 05, 2024
Patient feels better overall today. Patient denies abdominal pain nausea vomiting today. Afebrile
Objective Data
-
Labs:
Laboratory Results
11/05/24 11/05/24
01:03 05:47
WBC 11.3 H
Hgb 7.6 L 7.7 L
Hct 21.9 L 21.5 L
Plt Count 223 D
PT 14.0
INR 1.05
Sodium 136
Potassium 4.0
Chloride 107
Carbon Dioxide 27
BUN 27 H
Creatinine 0.6
Glucose 100 H
Calcium 8.0 L
Vital Signs:
Vital Signs
Temp Pulse Resp BP Pulse Ox
98.8 F 76 17 112/65 93
11/05/24 08:00 11/05/24 07:30 11/05/24 07:30 11/05/24 07:00 11/05/24 07:30
I&O
11/04/24 11/05/24 11/06/24
06:59 06:59 06:59
Intake Total 2120 / 2120 270 / 270
Output Total 1150 / 1150 200 / 200
Balance 970 / 970 70 / 70
--- NOTE | 2024-11-05 12:05 | W.PN.GS2 ---
Addendum entered and electronically signed by Barrie Gill MD 11/05/24 13:13:
Patient seen and examined. Agree with assessment plan as documented below.
No new complaints. Denies abdominal pain, previously reports some vague RLQ discomfort. No nausea or vomiting. Reports passing dark black stools for the past several days. Denies dizziness or lightheadedness. Denies chest pain or shortness of
breath. Afebrile.
Gen: NAD
Abd: soft, NT/ND, non-peritoneal, palpable hematoma at Pfannenstiel incision, soft, nontender, old ecchymosis
Patient is a 69 yo F s/p low anterior resection due to rectal cancer on 10/28/[address] Spivey, who presents from home due to dizziness and tarry stools with significant acute blood loss anemia noted. Denies use of NSAIDs at home but was on IV
NSAIDs immediately post op
AFVSS
TXA given on 11/04
H/H stable s/p 3 units of PRBC's (4.1 to 7.6, 7.7)
No further tarry stools.
UGI bleed suspected given tarry nature of stool. Anastomotic bleed also possible; although unlikely as this would present with bright red to maroon stools given proximity of new anastomosis to rectum.
Resolving hematoma to pfannenstiel incision
Plan:
-Follow exams/labs
-Appreciate GI following, plan for upper EGD today
-C/W PPI gtt as per GI
-Hold chemical VTE ppx given acute anemia, SCDS for mechanical ppx
Original Note:
Today's Communication / Plan
-
EGD today
Assessment / Plan
-
Assessment: 69-year-old female s/p low anterior resection due to rectal cancer on 10/28/[address] Spivey, who presents from home due to dizziness and tarry stools with significant acute blood loss anemia noted. Denies use of NSAIDs at home but was
on IV NSAIDs immediately post op
AFVSS
TXA given on 11/04
H/H stable s/p 3 units of PRBC's (4.1 to 7.6, 7.7)
No further tarry stools.
UGI bleed suspected given tarry nature of stool. Anastomotic bleed also possible; although unlikely as this would present with bright red to maroon stools given proximity of new anastomosis to rectum.
Resolving hematoma to pfannenstiel incision
Plan:
-Follow exams/labs
-Appreciate GI following, plan for upper EGD today
-C/W PPI gtt as per GI
-Hold chemical VTE ppx given acute anemia, SCDS for mechanical ppx
Subjective Data
-
Date of Service: November 05, 2024
Patient seen and examined at bedside with Dr. Gill. Denies n/v. Passing tarry stools. Some cramping abdominal discomfort prior to BM's, otherwise no pain. Mild upper abdominal discomfort
Objective Data
-
Intake and Output
11/04/24 11/05/24 11/06/24
06:59 06:59 06:59
Intake Total 2120 / 2120 405 / 405
Output Total 1150 / 1150 300 / 300
Balance 970 / 970 105 / 105
Intake:
IV fluids (Total) 1620 / 1620 405 / 405
Lr 1,000 ml @ 125 mls/hr IV . 1500 / 1500 375 / 375
Q8H [facility] Rx#:[id number]
Protonix 120 / 120 30 / 30
Blood Product Amount Infused ( 500 / 500
mL)
Packed Rbc Leukoreduced Unit 250 / 250
[id number]
Packed Rbc Leukoreduced Unit 250 / 250
[id number]
Output:
Urine, Voided 1150 / 1150 300 / 300
Other:
How many times incontinent 1
MODERATE amount urine
Vital Signs
Temp Pulse Resp BP Pulse Ox
98.8 F 75 17 110/75 95
11/05/24 08:00 11/05/24 10:30 11/05/24 10:30 11/05/24 10:00 11/05/24 10:30
Lab Results
11/05/24 05:47
Calcium 8.0 mg/dl (8.4-10.2) L 11/05/24 05:47
Total Bilirubin < 0.1 mg/dl (0.2-1.3) L 11/04/24 13:04
AST 23 U/L (14-36) 11/04/24 13:04
ALT 16 U/L (0-35) 11/04/24 13:04
Alkaline Phosphatase 58 U/L (38-126) 11/04/24 13:04
Total Protein 5.2 g/dl (6.3-8.2) L 11/04/24 13:04
Albumin 3.1 g/dl (3.5-5.0) L 11/04/24 13:04
Physical Exam
-
NAD
ABD soft, nt, nd
Incisions with intact glue, well approximated with resolving hematoma to Pfannenstiel incision
[2024-11-05 13:54] LABS: Hematocrit 21.6 % (37.0-47.0); Hemoglobin 7.5 g/dL (12.0-16.0); Mean Corp Hgb Conc. 34.7 g/dL (33.0-37.0); Mean Corpuscular Hgb 31.3 pg (27.0-31.0); Mean Platelet Volume 8.7 fL (7.4-10.4); Platelet Count 253 10^3/uL (130-400); Red Cell Dist. Width 15.6 % (11.5-14.5); White Blood Cell Count 10.3 10^3/uL (4.8-10.8)
--- NOTE | 2024-11-05 14:31 | PTCARENOTE ---
pt returned from EGD awake and alert. denies pain or nausea. CLD. CBC resulted. No change in assessment. CB in reach.
--- NOTE | 2024-11-05 18:32 | PTCARENOTE ---
Dr. Bocanegra TT's regarding capping her IVF. She is tolerating clear liquids post EGD and voiding. EGD report provided. Will cap IVF as ordered. Pt is aware of the plan of care.
[2024-11-05] MEDS: LR IV (18:33)
--- NOTE | 2024-11-05 20:00 | PTCARENOTE ---
Received patient at 1900. Pt. currently in bed. Awake, alert, and oriented. Denies pain/discomfort. Afebrile. Heart rhythm sinus. Blood pressure normotensive. Currently on 2L nasal cannula. Lungs sound diminished. Clear liquid diet is ordered, pt.
has decent appetite. Voiding without issue. Skin as documented. Discussed plan of care with patient. Vital signs stable at this time.
[2024-11-05 20:14] LABS: Hematocrit 21.7 % (37.0-47.0); Hemoglobin 7.6 g/dL (12.0-16.0); Mean Corpuscular Hgb 31.5 pg (27.0-31.0); Mean Platelet Volume 8.7 fL (7.4-10.4); Platelet Count 247 10^3/uL (130-400); Red Blood Cell Count 2.41 10^6/uL (4.20-5.40); Red Cell Dist. Width 15.9 % (11.5-14.5); White Blood Cell Count 9.9 10^3/uL (4.8-10.8)
[2024-11-06] VITALS (21 sets, daily range): BP systolic 94–136; BP diastolic 62–91; BMI 18.7
--- NOTE | 2024-11-06 | PTCARENOTE ---
Pt. assessment unchanged. Protonix gtt infusing. Pt. appears comfortable. Vital signs stable at this time.
--- NOTE | 2024-11-06 04:00 | PTCARENOTE ---
Pt. assessment remains unchanged. No GI symptoms over night. No bleeding noted. Hemoglobin in same range with repeat H+H earlier in shift. Will AM labs soon and check again. Vital signs stable at this time.
[2024-11-06 05:10] LABS: Hematocrit 22.1 % (37.0-47.0); Hemoglobin 7.4 g/dL (12.0-16.0); Mean Corp Hgb Conc. 33.5 g/dL (33.0-37.0); Mean Corpuscular Hgb 31.6 pg (27.0-31.0); Mean Corpuscular Volume 94.4 fL (81.0-99.0); Mean Platelet Volume 8.7 fL (7.4-10.4); Platelet Count 258 10^3/uL (130-400); Red Blood Cell Count 2.34 10^6/uL (4.20-5.40); Red Cell Dist. Width 16.1 % (11.5-14.5); White Blood Cell Count 8.2 10^3/uL (4.8-10.8)
[2024-11-06 05:32] LABS: Blood Urea Nitrogen 22 mg/dl (7-17); Calcium 7.9 mg/dl (8.4-10.2); Carbon Dioxide 27 mmol/L (22-30); Chloride 104 mmol/L (98-107); Estimated Creatinine Clearance 78 ml/min; Glucose 101 mg/dl (70-99); Magnesium 1.8 mg/dl (1.6-2.3); Phosphorus 3.6 mg/dl (2.5-4.5); Sodium 135 mmol/L (135-145); eGFR > 60.00
--- NOTE | 2024-11-06 08:12 | W.PN.GI.CBS2 ---
Today's Communication / Plan
-
Please see assessment and plan for details.
Assessment / Plan
-
1. GI bleed: Secondary to large duodenal ulcer with flat red spot, though no evidence of active bleeding, overall is doing well. Now 48 hours without any significant bleeding. Will continue PPI drip today, if continues to do well then likely able
to transition to twice daily tomorrow and possibly discharge, continue PPI twice daily. Will plan repeat EGD in 6 to 8 weeks to assess for healing and H. pylori status. Advised again no NSAIDs. Okay to advance diet from GI standpoint, though will
defer to surgery given recent LAR.
Subjective
Subjective
Date of Service: November 06, 2024
Patient feeling well, no abdominal pain, nausea or vomiting, tolerating clears without difficulty. No bowel movements overnight.
Objective
Data Reviewed
Laboratory Data:
Laboratory Results
11/06/24 04:55
11/06/24 04:55
Laboratory Results
PT 14.0 Sec (11.4-14.6) 11/05/24 05:47
INR 1.05 11/05/24 05:47
APTT 24.9 Sec (23.4-35.0) 11/04/24 19:39
Phosphorus 3.6 mg/dl (2.5-4.5) 11/06/24 04:55
Magnesium 1.8 mg/dl (1.6-2.3) 11/06/24 04:55
Total Bilirubin < 0.1 mg/dl (0.2-1.3) L 11/04/24 13:04
AST 23 U/L (14-36) 11/04/24 13:04
ALT 16 U/L (0-35) 11/04/24 13:04
Alkaline Phosphatase 58 U/L (38-126) 11/04/24 13:04
Vital Signs and I&O:
Vital Signs
Temp Pulse Resp BP Pulse Ox
98.2 F 74 19 122/75 98
11/06/24 07:00 11/06/24 05:30 11/06/24 05:30 11/06/24 05:00 11/06/24 05:30
I&O
11/05/24 11/06/24 11/07/24
06:59 06:59 06:59
Intake Total 2120 / 2120 1915 / 1925 280 / 280
Output Total 1150 / 1150 2150 / 2150
Balance 970 / 970 -235 / -225 280 / 280
Physical Exam
Physical Exam
General: NAD
Abdomen: normal bowel sounds, soft, minimal epigastric tenderness, no masses or bruits, no ascites
--- NOTE | 2024-11-06 08:28 | W.PN.INTV ---
Today's Communication / Plan
Recommendations
Serial H&H and transfuse to keep Hb >7 g/dL
Ok for regular diet as per GI + surgery
Pain control
Maintain MAP >65
Hold PO antihypertensives for now
Hold anticoagulants/antiplatelets for now
SCDs
Repeat EGD in 6-8 weeks
Patient is stable for downgrade out of ICU to telemetry. No additional recommendations at this time. Kiss Setter Hand/Pulmonary service will now sign off. Please reconsult if there are any additional questions/concerns, or if patient's respiratory
status deteriorates.
Assessment
-
69yo F with PMH of rectal cancer s/p resection 10/28/24 who presented to ED from home on 11/04 for dizziness. For her rectal cancer, she underwent chemotherapy from May-August, then had recent robotic low anterior resection with Dr. Spivey on
10/28; she was discharged from hospital 10/30, at which time her hgb was 12.9. Since her surgery, she reports black diarrhea. At home she initially felt well and had no difficulties ambulating. However over the past 1-2 days, she started feeling
'bad.' She reports dizziness, fatigue, nausea, vomiting, difficulty ambulating, and multiple falls that included injury to bridge of nose. In the ED, she was tachycardic to 107 with BPs 80s-120s/60s-70s, RR 20, SpO2 90% on room air, T 97.4. Her hgb
was 4.1 and transfusion was started. Abdomen/pelvic CT showed subcutaneous hematoma in anterior pelvic wall 6.8x2.4x3.5cm. Head CT was negative for acute ICH.
Impression:
#Acute anemia due to UGIB with duodenal ulcers x2 + gastric erosions (seen on EGD from 11/05/2024)
#Subcutaneous hematoma seen in the anterior pelvic wall measuring 6.8 x 2[address] A/P from 11/04/2024, likely postoperative related given recent robotic low anterior resection on 10/28/2024 but also patient reports 'black diarrhea' which is
concerning for an upper GI bleed
#Nausea/vomiting with reduced PO intake - N/V resolved
#Black diarrhea concerning for melena/UGIB
#Lightheadedness/dizziness due to symptomatic anemia
#Rectal cancer s/p robotic assisted low anterior resection (OR date: 10/28/2024)
#Hyponatremia (mild) - resolved
#Former tobacco use disorder
#Hypoalbuminemia
Plan:
- Transfuse blood products to keep Hb >7 g/dL; keep platelets >50 K and INR<1.8
- She was transfused 3 units PRBC on 11/04/2024 and has not needed a transfusion since 11/04/2020
- PPI gtt for another 24 hours then can switch to intermittent 40 mg IV BID dosing
- EGD done yesterday showed localized mildly erythematous mucosa on the greater curvature of the stomach with few localized small erosions with stigmata of recent bleeding, as well as 2 non-bleeding cratered duodenal ulcers with a flat pigmented
spot in the duodenal bulb, largest lesion measuring 8 mm. No blood was seen throughout procedure. No specimens collected.
- Repeat EGD as per GI in 6-8-weeks
- Colorectal surgery consulted and recommendations appreciated
- Large bore IV x2
- Hold all anticoagulants/antiplatelets for now
- Hold oral antihypertensives for now
- Maintain MAP>65
- Now on regular diet, as per surgery
- Avoid all NSAIDs
- Pain control
- Maintain euglycemia with goal BG 140-180mg/dL; continue ISS
- Replete K>4, Mg>2
- DVT ppx: SCDs for now
Patient is stable for downgrade out of ICU to telemetry. No additional recommendations at this time. [facility]/Pulmonary service will now sign off. Thank you for allowing us to be involved in the care of this patient. Please reconsult if there
are any additional questions/concerns, or if patient's respiratory status deteriorates.
Total time spent today was 38 minutes for this encounter. Time includes reviewing laboratory test/imaging results, reviewing pertinent medical records, obtaining and reviewing medical history, performing an appropriate exam, ordering medications,
tests and procedures. Time also includes documentation of this encounter, coordinating patient care and communicating with other healthcare professionals. Total time does not include separately billed tests performed on this date of service.
Data:
CT abdomen/pelvis with IV contrast 11/04/2024:
1. Subcutaneous hematoma in the anterior pelvic wall measuring 6.8 x 2.4 x 3.5 cm.
2. Postoperative changes in keeping with the recent low anterior resection including subcutaneous emphysema extending along the anterior abdominal and pelvic wall. Intact rectal anastomosis without evidence for extravasation of instilled rectal
contrast.
CT head 11/04/24: No acute intracranial abnormality.
CXR 11/04/2024: No active cardiopulmonary disease.
Subjective Dataa
Subjective Data
Date of Service:
Date of Service: November 06, 2024
Chief Complaint: Kiss Setter Hand Follow Up
Subjective:
Patient was seen and evaluated this morning. She has a good appetite, still feels fatigued but feels much better than when she first was admitted. Currently, heart rate 80, BP 104/79 and saturating 96% on room air. She denies DRAKE, chest pain,
nausea, fevers or chills. Still has some mild tenderness in her right side of her belly.
Review of Systems
General: Other (Negative unless mentioned above)
Objective Data
Data Reviewed
Vital Signs / I&O / Oxygen:
Vital Signs
Temp Pulse Resp BP Pulse Ox
98.2 F 74 19 122/75 92
11/06/24 07:00 11/06/24 05:30 11/06/24 05:30 11/06/24 05:00 11/06/24 08:09
Intake and Output
11/05/24 11/06/24 11/07/24
06:59 06:59 06:59
Intake Total 2120 / 2120 1915 / 1925 280 / 280
Output Total 1150 / 1150 2150 / 2150
Balance 970 / 970 -235 / -225 280 / 280
SaO2 92
Nasal Cannula flow liters per 2
minute
Physical Exam
General: Respiratory Distress (negative), Comfortable, Pain (Right lower quadrant abdominal pain (mild)), Chills (negative) and Sweats (negative)
HEENT: Normocephalic and Anicteric
Cardiovascular: S1-S2, Murmur (JAVIER heard across precordium), Rub (negative) and Peripheral Edema (negative)
Respiratory: Wheeze (negative), Crackles (Bibasilar), Rhonchi (negative), Non-Labored Respirations and Stridor (negative)
GI: Soft, Non Distended, Tender (Right lower quadrant (mild)), Normal Bowel Sounds and Other (No peritoneal signs)
Neurology: AO x 3 and Tremors (negative)
Skin: Warm, Dry, Cyanosis (negative) and Jaundice (negative)
Labs/Micro/Reports
Lab Data
11/06/24 04:55
11/06/24 04:55
Microbiology
11/04/24 13:53 Nasal Swab Influenza Types A & B (KIMANI) - Final
Negative for Influenza A & B, NAAT
Negative results must be combined with clinical observations
and patient history.
Nucleic Acid Amplification test (NAAT)performed on the
[employer] platform.
[2024-11-06] MEDS: PROTONIX 100 IV ×2 (08:39→19:57)
--- NOTE | 2024-11-06 08:59 | W.PN.HOSP.TC ---
Today's Communication/Plan
-
Continue IV pantoprazole drip. PT OT. Monitor hemoglobin
Assessment / Plan
Assessment / Plan
Physical exam:
General: Acutely ill
HEENT: Normocephalic, Atraumatic and Moist Mucous Membranes
Respiratory: Clear to Auscultation; Negative Wheezes, Rales or Rhonchi
Cardiac: Regular Rhythm and S1/S2
GI: Soft, Non tender and non distended. Circumscribed area of hematoma in the lower pelvic area anteriorly. Postop findings on exam from recent surgery.
Musculoskeletal: No Clubbing, No Cyanosis and No Edema
Neuro: Awake, Alert and Oriented
Psych: Calm
EGD:
- Normal esophagus.
- Erythematous mucosa in the greater curvature.
- Erosive gastropathy with stigmata of recent bleeding.
- Non-bleeding duodenal ulcers with a flat pigmented
spot (Sp Class IIc).
- No specimens collected.
A/P:
Hypovolemic shock:
Improved.
Stop IV fluid
Status post blood transfusions
Pressors if needed
Continue IV PPI drip
Status post tranexamic acid
Monitor hemoglobin closely
Seen CT scan of the head and no acute intracranial
Seen CT scan of the abdomen pelvis and was able to visualize hematoma anteriorly in the pelvic wall and postop changes.
Colorectal surgery consulted
GI consult appreciated
Lighting Adviser consulted-discussed with podiatry doctor today and plan to transfer out of ICU
PT OT eval
Concerns for acute GI bleed:
Regular diet today
Continue IV Protonix drip
Maintain IV access
Stop IV fluid
Monitor hemoglobin closely
Avoid NSAIDs and anticoagulant
Review EGD result
Leukocytosis:
Reactive versus infectious
Monitor trend
Hyponatremia:
Mild
Monitor trend
DVT prophylaxis:
SCDs
CODE STATUS:
Full code
Anticipated Discharge: 24 - 48 hours
Subjective/Interval History
-
Date of Service: November 06, 2024
Patient feels better today. No abdominal pain or nausea or vomiting.
Objective Data
-
Labs:
Laboratory Results
11/06/24
04:55
WBC 8.2
Hgb 7.4 L
Hct 22.1 L
Plt Count 258
Sodium 135
Potassium 4.0
Chloride 104
Carbon Dioxide 27
BUN 22 H
Creatinine 0.6
Glucose 101 H
Calcium 7.9 L
Vital Signs:
Vital Signs
Temp Pulse Resp BP Pulse Ox
98.2 F 74 19 122/75 92
11/06/24 07:00 11/06/24 05:30 11/06/24 05:30 11/06/24 05:00 11/06/24 08:09
I&O
11/05/24 11/06/24 11/07/24
06:59 06:59 06:59
Intake Total 2120 / 2120 1915 / 1925 280 / 280
Output Total 1150 / 1150 2150 / 2150
Balance 970 / 970 -235 / -225 280 / 280
--- NOTE | 2024-11-06 09:01 | PTCARENOTE ---
pt ambulated to bathroom SBA large dark coffee ground BM. VSS, GI notified
--- NOTE | 2024-11-06 10:31 | W.PN.GS2 ---
Addendum entered and electronically signed by Barrie Gill MD 11/06/24 10:39:
Patient seen and examined. Agree with assessment plan as documented below.
No major complaints. Denies any abdominal pain. No nausea or vomiting. Reports passing a rust colored stool and flatus.
Gen: NAD
Abd: soft, NT/ND, non-peritoneal, incisions c/d/i, lower abdominal hematoma stable, soft, old ecchymosis
Patient is a 69 yo F s/p low anterior resection due to rectal cancer on 10/28/[address] Spivey, who presents from home due to dizziness and tarry stools with significant acute blood loss anemia noted. Denies use of NSAIDs at home but was on IV
NSAIDs immediately post op
AFVSS
TXA given on 11/04
H/H remains stable s/p 3 units of PRBC's
Acute blood loss anemia secondary to UGI bleed. PPD #1 EGD with large duodenal ulcer noted, will need repeat EGD in 6-8 weeks
No further tarry stools; passed some coffee ground stool today, suspect old blood.
Resolving hematoma to Pfannenstiel incision
Plan:
-Advance to regular diet
-C/W PPI gtt as per GI, can likely transition to PPI BID
-Appreciate GI following
-Hold chemical VTE ppx given acute anemia, SCDS for mechanical ppx
Original Note:
Today's Communication / Plan
-
Advance diet
Assessment / Plan
-
Assessment: 69-year-old female s/p low anterior resection due to rectal cancer on 10/28/[address] Spivey, who presents from home due to dizziness and tarry stools with significant acute blood loss anemia noted. Denies use of NSAIDs at home but was
on IV NSAIDs immediately post op
AFVSS
TXA given on 11/04
H/H remains stable s/p 3 units of PRBC's
Acute blood loss anemia secondary to UGI bleed. PPD #1 EGD with large duodenal ulcer noted, will need repeat EGD in 6-8 weeks
No further tarry stools; passed some coffee ground stool today, suspect old blood.
Resolving hematoma to Pfannenstiel incision
Plan:
-Follow exams/labs
-Appreciate GI following
-Advance to regular diet
-C/W PPI gtt as per GI
-Hold chemical VTE ppx given acute anemia, SCDS for mechanical ppx
Subjective Data
-
Date of Service: November 06, 2024
Patient seen and examined at bedside with Dr. Gill. Denies n/v. OOB to chair. Passed a loose red/brown stool this am. Some dizziness with ambulation. Denies abdominal pain.
Objective Data
-
Intake and Output
11/05/24 11/06/24 11/07/24
06:59 06:59 06:59
Intake Total 2120 / 2120 1915 / 1925 350 / 350
Output Total 1150 / 1150 2150 / 2150 200 / 200
Balance 970 / 970 -235 / -225 150 / 150
Intake:
Oral fluids 320 / 320 320 / 320
IV fluids (Total) 1620 / 1620 1595 / 1605 30 / 30
Lr 1,000 ml @ 125 mls/hr IV . 1500 / 1500 1375 / 1375
Q8H WENDY Rx#:[id number]
Protonix 120 / 120 220 / 230 30 / 30
Blood Product Amount Infused ( 500 / 500
mL)
Packed Rbc Leukoreduced Unit 250 / 250
[id number]
Packed Rbc Leukoreduced Unit 250 / 250
[id number]
Output:
Urine, Voided 1150 / 1150 2150 / 2150 200 / 200
Other:
How many times incontinent 1
MODERATE amount urine
Vital Signs
Temp Pulse Resp BP Pulse Ox
98.2 F 74 19 122/75 92
11/06/24 07:00 11/06/24 05:30 11/06/24 05:30 11/06/24 05:00 11/06/24 08:09
Lab Results
11/06/24 04:55
11/06/24 04:55
Calcium 7.9 mg/dl (8.4-10.2) L 11/06/24 04:55
Phosphorus 3.6 mg/dl (2.5-4.5) 11/06/24 04:55
Magnesium 1.8 mg/dl (1.6-2.3) 11/06/24 04:55
Total Bilirubin < 0.1 mg/dl (0.2-1.3) L 11/04/24 13:04
AST 23 U/L (14-36) 11/04/24 13:04
ALT 16 U/L (0-35) 11/04/24 13:04
Alkaline Phosphatase 58 U/L (38-126) 11/04/24 13:04
Total Protein 5.2 g/dl (6.3-8.2) L 11/04/24 13:04
Albumin 3.1 g/dl (3.5-5.0) L 11/04/24 13:04
Physical Exam
-
NAD
ABD soft, nt, nd
Incisions with intact glue, well approximated with resolving hematoma to Pfannenstiel incision
--- NOTE | 2024-11-06 14:34 | PTCARENOTE ---
pt tolerating regular diet. No c/o pain n/v/d. VS remain stable. downgrade orders received
[2024-11-06 15:30] LABS: Hematocrit 23.9 % (37.0-47.0); Hemoglobin 8.3 g/dL (12.0-16.0); Mean Corp Hgb Conc. 34.7 g/dL (33.0-37.0); Mean Corpuscular Hgb 31.9 pg (27.0-31.0); Mean Corpuscular Volume 91.9 fL (81.0-99.0); Mean Platelet Volume 8.6 fL (7.4-10.4); Platelet Count 323 10^3/uL (130-400); Red Cell Dist. Width 15.8 % (11.5-14.5); White Blood Cell Count 9.8 10^3/uL (4.8-10.8)
--- NOTE | 2024-11-06 18:23 | PTCARENOTE ---
Received patient this afternoon from ICU. Pt oriented to room. Protonix Drip infusing without difficulty. Offered no complaints. Made patient comfortable. Cont to assess patient status.
[2024-11-07 03:26] VITALS: BP 134/71
[2024-11-07 05:36] LABS: Hematocrit 23.7 % (37.0-47.0); Hemoglobin 7.9 g/dL (12.0-16.0); Mean Corp Hgb Conc. 33.3 g/dL (33.0-37.0); Mean Corpuscular Hgb 31.6 pg (27.0-31.0); Mean Corpuscular Volume 94.8 fL (81.0-99.0); Mean Platelet Volume 8.4 fL (7.4-10.4); Platelet Count 318 10^3/uL (130-400); Red Cell Dist. Width 15.8 % (11.5-14.5); White Blood Cell Count 8.1 10^3/uL (4.8-10.8)
[2024-11-07 06:02] LABS: Blood Urea Nitrogen 19 mg/dl (7-17); Calcium 8.1 mg/dl (8.4-10.2); Carbon Dioxide 30 mmol/L (22-30); Chloride 103 mmol/L (98-107); Estimated Creatinine Clearance 67 ml/min; Glucose 103 mg/dl (70-99); Magnesium 1.8 mg/dl (1.6-2.3); Phosphorus 3.5 mg/dl (2.5-4.5); Potassium 3.9 mmol/L (3.5-5.1); Sodium 135 mmol/L (135-145); eGFR > 60.00
[2024-11-07] MEDS: PROTONIX 100 IV (06:31)
[2024-11-07 07:11] VITALS: BP 155/79
[2024-11-07] MEDS: VITAMIN D3 (cholecalciferol) 25 MCG PO (09:02)
[2024-11-07 09:15] VITALS: BP 179/89; PULSE 100; O2SAT 95
[2024-11-07 09:26] VITALS: BP 179/89; PULSE 100; O2SAT 95
--- NOTE | 2024-11-07 11:44 | W.PN.CRS1 ---
Today's Communication / Plan
-
� As below
Assessment/Plan
-
69-year-old female with PMH of HLD, OA, [id number] smoking history and rectal cancer who underwent robotic LAR on 10/28 which was complicated by a hematoma under the Pfannenstiel incision, but stabilized with nonoperative measures (i.e.�pressure
dressing, holding DVT PPx) and was discharged on 10/30, who presented to the ED after reports of syncopal episodes; found to have Hb of 4.1, s/p EGD on 11/05 with finding of large duodenal ulcer, being treated medically
AFVSS
WBC 8.1 from 9.8, Hb 7.9 from 7.7, creatinine 0.6
� Upper GI bleed, now stabilized
�Appreciate GI, continue PPI twice daily, repeat EGD in 6 to 8 weeks
� Continue regular diet
� Continue pain control
� OOB/IS
� Appreciate hospitalist; okay for discharge from surgical standpoint once cleared from GI
Subjective Data
Subjective Data
Date of Service: November 07, 2024
No overnight events.
Pain controlled.
Denies nausea/vomiting. Tolerating diet.
+flatus +BMs (nonbloody) +voiding
Objective Data
-
Vital Signs
Temp Pulse Resp BP Pulse Ox
98.5 F 78 18 155/79 95
11/07/24 07:11 11/07/24 07:11 11/07/24 07:11 11/07/24 07:11 11/07/24 09:07
Intake & Output
11/06/24 11/07/24 11/08/24
06:59 06:59 06:59
Intake Total 5 / 1925 1200 / 1200
Output Total 2150 / 2150 600 / 600
Balance -235 / -225 600 / 600
Intake:
Oral fluids 320 / 320 1120 / 1120
IV fluids (Total) 1595 / 1605 80 / 80
Lr 1,000 ml @ 125 mls/hr IV . 1375 / 1375
Q8H WENDY Rx#:[id number]
Protonix 220 / 230 80 / 80
Output:
Urine, Voided 2150 / 2150 600 / 600
Other:
Number of approximated MODERATE 3
amounts of urine
Lab Results
11/07/24 05:17
11/07/24 05:17
Physical Exam
-
General: No Acute Distress and AOx3
HEENT: Grossly Normal
Abdomen: Soft, Non Distended and Non Tender
Skin: Warm and Dry
Wound: No Signs of Infection, No Skin Erythema and Other (Incisions well-approximated without erythema or drainage; Pfannenstiel incision with palpable subcutaneous hematoma, smaller from discharge on 10/30 (pen marking still in place))
[2024-11-07 11:46] VITALS: BP 143/81
[2024-11-07 11:49] LABS: TSH Reflex To Free T4 1.37 uIU/ml (0.47-4.68)
--- NOTE | 2024-11-07 12:22 | W.PN.HOSP.TC ---
Today's Communication/Plan
-
dc
Assessment / Plan
Assessment / Plan
69yo F with PMHx of rectal CA s/p resection on 10/28/24 came with dizziness and tarry stools, noted severe anemia s/p 3 units PRBC, hgb remained stable on PPI drip. EGD done on 11/06/24 showed Sp class 2c ulcer. Patient had no more bleeding
afterwards. GI recommended PPI BID and repeating EGD in 6-8 weeks. GenSx advised to advance diet. Patient hemodynamically stable and agreeable for d/c. SHe was very anxious to leave the hospital with tachycardia during PT/OT. Outpatient serial H&H
advised - patient verbalized understanding of the instructions. TSH WNL
A/P
#Acute symptomatic blood loss anemia 2/2 postOP bleed and PUD with upeer GIB
CT with Subcutaneous hematoma in the anterior pelvic wall measuring 6.8 x 2.4 x 3.5 cm
GenSx and GI followed
S/P EGD on 11/06/24
cont PPI
repeat EGD in 6-8 weeks
#Reactive leukocytosis
resolved
#Mild hyponatremia
monitor
DVT ppx SCDs
Full code
I have spent at least 38min reviewing the chart, test results and providing direct patient care
Anticipated Discharge: Today
Subjective/Interval History
-
Date of Service: November 07, 2024
Objective Data
-
Labs:
Laboratory Results
11/07/24
05:17
WBC 8.1
Hgb 7.9 L
Hct 23.7 L
Plt Count 318
Sodium 135
Potassium 3.9
Chloride 103
Carbon Dioxide 30
BUN 19 H
Creatinine 0.7
Glucose 103 H
Calcium 8.1 L
Vital Signs:
Vital Signs
Temp Pulse Resp BP Pulse Ox
98 F 81 18 143/81 95
11/07/24 11:46 11/07/24 11:46 11/07/24 11:46 11/07/24 11:46 11/07/24 11:46
I&O
11/06/24 11/07/24 11/08/24
06:59 06:59 06:59
Intake Total 1915 / 1925 1200 / 1200
Output Total 2150 / 2150 600 / 600
Balance -235 / -225 600 / 600
Review of Systems
-
History Source: Patient
All other systems: Reviewed and negative
Physical Exam
-
General: No Apparent Distress
HEENT: Normocephalic
Respiratory: Clear to Auscultation
GI: Soft, Nontender and Nondistended
Neuro: Awake, Alert, Oriented and AO x 3
Psych: Calm and Agitated
--- NOTE | 2024-11-07 12:23 | W.DCSUMMARY ---
Discharge Summary
Discharge Data
Date of Admission: 11/04/24
Date of Discharge: 11/07/24
-
Pending Results: No
Hospital Course
69yo F with PMHx of rectal CA s/p resection on 10/28/24 came with dizziness and tarry stools, noted severe anemia s/p 3 units PRBC, hgb remained stable on PPI drip. EGD done on 11/06/24 showed Sp class 2c ulcer. Patient had no more bleeding
afterwards. GI recommended PPI BID and repeating EGD in 6-8 weeks. GenSx advised to advance diet. Patient hemodynamically stable and agreeable for d/c. SHe was very anxious to leave the hospital with tachycardia during PT/OT. Outpatient serial H&H
advised - patient verbalized understanding of the instructions. TSH WNL
I have spent at least 38min reviewing the chart, test results and providing direct patient care
Patient was managed for:
#Acute symptomatic blood loss anemia 2/2 postOP bleed and PUD with upeer GIB
#Reactive leukocytosis
#Mild hyponatremia
Discharge Plan
-
Patient Disposition: Home (Routine Discharge)
Discharge Diagnosis/Procedures: Acute anemia
Diet: Regular
Activity: As tolerated
Driving Restrictions: As prior to admission
Blood Work: CBC every week with family doctor
Referrals:
Michael Kiran MD [Active] - in three to four weeks (you will need office visit 3-4 week and a repeat endoscopy 6-8 weeks )
Nicolette Sharp CRNP [Family Provider] -
Gregory Spivey MD [Active] - in two to four weeks
Prescriptions:
New
pantoprazole 40 mg tablet,delayed release (DR/EC)
40 mg PO BID Qty: 60 0RF
Continued
cholecalciferol (vitamin D3) [Vitamin D3] 25 mcg (1,000 unit) Tablet,Chewable
25 mcg PO DAILY
acetaminophen 325 mg tablet
650 mg PO Q4HPRN PRN (Reason: mild pain) Qty: 1 0RF
oxycodone 5 mg tablet
5 mg PO Q4HPRN PRN (Reason: breakthrough/severe pain) Qty: 10 0RF
Discharge Orders:
Discharge Patient (As Directed); Ordered 11/07/24
Ordered By: Quintin Boucher
Discharge Date and Time
Print Language: CITIZEN OF [place]
--- NOTE | 2024-11-07 13:08 | W.PN.GI.CBS2 ---
Today's Communication / Plan
-
Tolerating regular diet.
No further evidence of GI bleeding
Hemoglobin seems to be stable.
Continue Protonix 40 mg p.o. twice a day until repeat endoscopy.
Will plan repeat EGD in 6 to 8 weeks to assess for healing and H. pylori status.
Advised again no NSAIDs.
She will receive a call from my office for an appointment for visit.
Monitor H&H outpatient as well.
Assessment / Plan
-
1. GI bleed: Secondary to large duodenal ulcer with flat red spot, though no evidence of active bleeding, overall is doing well.
Tolerating regular diet.
No further evidence of GI bleeding
Hemoglobin seems to be stable.
Continue Protonix 40 mg p.o. twice a day until repeat endoscopy.
Will plan repeat EGD in 6 to 8 weeks to assess for healing and H. pylori status.
Advised again no NSAIDs.
She will receive a call from my office for an appointment for visit.
Monitor H&H outpatient as well.
Subjective
Subjective
Date of Service: November 07, 2024
Patient denies any abdominal pain, nausea or vomiting. Had a bowel movement yesterday but not today. Tolerating regular diet.
Objective
Data Reviewed
Laboratory Data:
Laboratory Results
11/07/24 05:17
11/07/24 05:17
Laboratory Results
PT 14.0 Sec (11.4-14.6) 11/05/24 05:47
INR 1.05 11/05/24 05:47
APTT 24.9 Sec (23.4-35.0) 11/04/24 19:39
Phosphorus 3.5 mg/dl (2.5-4.5) 11/07/24 05:17
Magnesium 1.8 mg/dl (1.6-2.3) 11/07/24 05:17
Total Bilirubin < 0.1 mg/dl (0.2-1.3) L 11/04/24 13:04
AST 23 U/L (14-36) 11/04/24 13:04
ALT 16 U/L (0-35) 11/04/24 13:04
Alkaline Phosphatase 58 U/L (38-126) 11/04/24 13:04
Vital Signs and I&O:
Vital Signs
Temp Pulse Resp BP Pulse Ox
98 F 81 18 143/81 95
11/07/24 11:46 11/07/24 11:46 11/07/24 11:46 11/07/24 11:46 11/07/24 11:46
I&O
11/06/24 11/07/24 11/08/24
06:59 06:59 06:59
Intake Total 5 / 1924 1200 / 1200
Output Total 2150 / 2150 600 / 600
Balance -235 / -225 600 / 600
Physical Exam
Physical Exam
GI: Soft, Non Distended and Non Tender
--- NOTE | 2024-11-07 14:14 | CM ---
Keyana is ready for discharge to home today. She is agreeable to [facility]N and requested [facility] for services. Pt has been accepted for [facility].
Plan: Discharge to home with [facility].
[2024-11-07] MEDS: PROTONIX IV (15:30)
== END 2024-11-07 14:37 | disposition home health service (06) | DRG 377 ==
LOC: 4 EAST ACU 17:01
PROVIDERS: Internal Medicine Gastroenterology; Nurse Practitioner Primary Care; ADMITTING PHYSICIAN Hospitalist; ATTENDING PHYSICIAN Internal Medicine; CONSULT PHYSICIAN Internal Medicine Critical Care Medicine; CONSULT PHYSICIAN Specialist; CONSULT PHYSICIAN Surgery; EMERGENCY PHYSICIAN Student in an Organized Health Care Education/Training Program; FAMILY PHYSICIAN Nurse Practitioner
PROC: 30233N1 Transfusion of Nonautologous Red Blood Cells into Peripheral Vein, Percutaneous Approach (ICD-10-PCS; 2024-11-04)
PROC: 0DJ08ZZ Inspection of Upper Intestinal Tract, Via Natural or Artificial Opening Endoscopic (ICD-10-PCS; 2024-11-05)
DX: K26.4 Chronic or unspecified duodenal ulcer with hemorrhage (principal); R57.1 Hypovolemic shock; D62 Acute posthemorrhagic anemia; E87.1 Hypo-osmolality and hyponatremia; C20 Malignant neoplasm of rectum; K92.1 Melena; F17.200 Nicotine dependence, unspecified, uncomplicated; E55.9 Vitamin D deficiency, unspecified; M19.90 Unspecified osteoarthritis, unspecified site; R29.6 Repeated falls; E88.09 Other disorders of plasma-protein metabolism, not elsewhere classified; E78.49 Other hyperlipidemia; L76.32 Postprocedural hematoma of skin and subcutaneous tissue following other procedure; J44.9 Chronic obstructive pulmonary disease, unspecified; R26.2 Difficulty in walking, not elsewhere classified; K31.89 Other diseases of stomach and duodenum; E78.00 Pure hypercholesterolemia, unspecified; T81.82XA Emphysema (subcutaneous) resulting from a procedure, initial encounter; Y83.2 Surgical operation with anastomosis, bypass or graft as the cause of abnormal reaction of the patient, or of later complication, without mention of misadventure at the time of the procedure; Y92.9 Unspecified place or not applicable; W18.39XA Other fall on same level, initial encounter; Y93.9 Activity, unspecified; Y92.009 Unspecified place in unspecified non-institutional (private) residence as the place of occurrence of the external cause; Z90.49 Acquired absence of other specified parts of digestive tract; Z92.21 Personal history of antineoplastic chemotherapy; Z11.52 Encounter for screening for COVID-19
CPT/HCPCS: 36430; 70450; 71045; 74177; 80048; 80053; 83735; 84100; 84443; 84484; 85014; 85018; 85025; 85027; 85610; 85730; 86850; 86900; 86901; 86920; 87502; 87811; 93005; 96361; 96365; 96366; 96375; 97163; 97166; 99291; P9016; Q9967

== ENCOUNTER 2025-01-06 06:21 | Day surgery (SDC) | payer MEDICARE, OTHER, SELFPAY | END 2025-01-06 13:22 | disposition home or self-care (01) | LOC: GI 06:21 | PROVIDERS: ATTENDING PHYSICIAN Internal Medicine Gastroenterology | DX: K44.9 Diaphragmatic hernia without obstruction or gangrene (principal); K26.0 Acute duodenal ulcer with hemorrhage | CPT/HCPCS: 43239; 88305; 88342 ==

== ENCOUNTER 2025-01-24 06:25 | Day surgery (SDC) | payer MEDICARE, OTHER, SELFPAY | END 2025-01-24 10:21 | disposition home or self-care (01) | LOC: GI 06:25 | PROVIDERS: ATTENDING PHYSICIAN Surgery | DX: Z08 Encounter for follow-up examination after completed treatment for malignant neoplasm (principal); K64.4 Residual hemorrhoidal skin tags; K64.9 Unspecified hemorrhoids; D12.3 Benign neoplasm of transverse colon; Z98.0 Intestinal bypass and anastomosis status; Z85.048 Personal history of other malignant neoplasm of rectum, rectosigmoid junction, and anus | CPT/HCPCS: 45385; 88305 ==

== ENCOUNTER → 2025-05-10 08:07 | Outpatient (REF) | payer MEDICARE, OTHER, SELFPAY | LOC: MRI 3T 08:07 | PROVIDERS: ATTENDING PHYSICIAN Internal Medicine Hematology & Oncology; FAMILY PHYSICIAN Nurse Practitioner | DX: C20 Malignant neoplasm of rectum (principal); D50.9 Iron deficiency anemia, unspecified | CPT/HCPCS: 71270; 72197; 74178; A9575; Q9967 ==

== ENCOUNTER → 2025-07-07 09:02 | Outpatient (REF) | payer MEDICARE, OTHER, SELFPAY | LOC: HWRCS 09:02 | PROVIDERS: ATTENDING PHYSICIAN Nurse Practitioner | DX: R01.1 Cardiac murmur, unspecified (principal) | CPT/HCPCS: 93306 ==

== ENCOUNTER → 2025-10-20 10:47 | Outpatient (REF) | payer MEDICARE, OTHER, SELFPAY | LOC: RAD 10:47 | PROVIDERS: ATTENDING PHYSICIAN Internal Medicine Hematology & Oncology; FAMILY PHYSICIAN Nurse Practitioner | DX: C20 Malignant neoplasm of rectum (principal); D50.9 Iron deficiency anemia, unspecified | CPT/HCPCS: 71270; 74178; Q9967 ==

== ENCOUNTER → 2025-10-23 10:31 | Outpatient (REF) | payer MEDICARE, OTHER, SELFPAY | LOC: MRI 3T 10:31 | PROVIDERS: ATTENDING PHYSICIAN Internal Medicine Hematology & Oncology; FAMILY PHYSICIAN Nurse Practitioner | DX: C20 Malignant neoplasm of rectum (principal) | CPT/HCPCS: 72197; A9575 ==